=== PATIENT | female | born 1940 | race Caucasian/White ===

== ENCOUNTER 2017-04-29 11:29 | Emergency (ER) | payer MEDICARE, BC ==
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
[2017-04-29 11:56] VITALS: BP 115/68
[2017-04-29] MEDS ORDERED: Amoxicillin/Clavulanate K 875-125 MG Tab PO SCH (12:00)
[2017-04-29] MEDS ORDERED: Amoxicillin/Clavulanate K 875-125 MG Tab ONE (12:06)
[2017-04-29] MEDS ORDERED: Amoxicillin/Clavulanate K 875-125 MG Tab PO ONE (12:10)
== END 2017-04-29 12:15 | disposition home or self-care (01) ==
LOC: KA.ED 11:29
DX: J06.9 Acute upper respiratory infection, unspecified (principal); J01.00 Acute maxillary sinusitis, unspecified; Z88.6 Allergy status to analgesic agent; Z88.5 Allergy status to narcotic agent; Z88.1 Allergy status to other antibiotic agents; Z88.2 Allergy status to sulfonamides; Z79.899 Other long term (current) drug therapy
CPT/HCPCS: 99283; A9270

== ENCOUNTER 2017-07-09 21:21 | Observation (INO) | payer MEDICARE, BC ==
[~2017-07-09 21:21] MED LIST: Midazolam 1 MG/ML 2 ML SDV IV ONE; Propofol 200 MG/20 ML SDV IV ONE; fentaNYL 100 MCG/2 ML SDV IV ONE
[2017-07-09] MEDS ORDERED: Ondansetron 4 MG/2 ML SDV ONE (21:46)
[2017-07-09] MEDS ORDERED: Morphine 2 MG/ML Syringe ONE (21:46)
[2017-07-09] MEDS ORDERED: Morphine 2 MG/ML Syringe IVPUSH ONE (21:47)
[2017-07-09] MEDS ORDERED: Ondansetron 4 MG/2 ML SDV IVPUSH ONE (21:47)
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
[2017-07-09] MEDS ORDERED: Lactated Ringers 1,000 ML IV ONE (22:00)
[2017-07-09] MEDS ORDERED: Lactated Ringers 1,000 ML ONE (23:25)
[2017-07-10] MEDS: Baclofen 10 MG Tab PO SCH ×2 (02:14→23:26)
[2017-07-10] MEDS: Morphine 2 MG/ML Syringe IVPUSH PRN ×5 (02:15→11:16)
[2017-07-10] MEDS: Sodium Chloride 0.9% 5 ML Syringe FLUSH SCH ×5 (04:40→21:22)
[2017-07-10] MEDS ORDERED: Lidocaine 2% 100 MG/5 ML Syringe IVPUSH PRN (09:38)
[2017-07-10] MEDS ORDERED: Atropine 0.1 MG/ML 10 ML Syringe IVPUSH PRN (09:38)
[2017-07-10] MEDS ORDERED: EPINEPHrine 1:10,000 1 MG/10 ML Syringe IVPUSH PRN (09:38)
[2017-07-10] MEDS ORDERED: Nitroglycerin 0.4 MG Tab.SL SL PRN (09:38)
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
[2017-07-10] MEDS ORDERED: Albuterol/Ipratropium 3.0-0.5 MG/3 ML Neb Soln INH PRN ×2 (11:30→12:15)
[2017-07-10] MEDS ORDERED: Non-Formulary Medication 1 Each (Non-Formulary Medication [Nf Drug] 1 APPLIC) TP PRN (11:30)
[2017-07-10] MEDS: Ketorolac 30 MG/ML SDV IVPUSH SCH ×4 (11:55→22:44)
[2017-07-10] MEDS: Gabapentin 100 MG Cap PO SCH ×2 (11:59→20:33)
[2017-07-10] MEDS: Aspirin 81 MG Tab.EC PO SCH (11:59)
[2017-07-10] MEDS ORDERED: Acetaminophen 500 MG Tab PO PRN (12:00)
[2017-07-10] MEDS ORDERED: 20% Ketoprofen 12 GM, 3% Menthol 1.8 GM & 8% Trolamine Salicylate 46.2 GM TOP PRN ×3 (12:01)
[2017-07-10] MEDS: HYDROmorphone 2 MG Tab PO PRN ×2 (12:02→22:17)
[2017-07-10] MEDS: Losartan 50 MG Tab PO SCH (12:30)
[2017-07-10] MEDS: Propranolol 20 MG Tab PO SCH ×2 (12:30→20:32)
[2017-07-10] MEDS: Omeprazole 20 MG Cap.CR PO SCH ×2 (12:45→17:12)
[2017-07-10] MEDS: tiZANidine 4 MG Tab PO SCH ×3 (12:45→22:15)
[2017-07-10] MEDS ORDERED: rOPINIRole 1 MG Tab PO SCH ×2 (14:00→21:00)
[2017-07-10] MEDS: Escitalopram 10 MG Tab PO SCH (14:54)
[2017-07-10 16:53] LABS: CHLORIDE,CL 102 mmol/L (98-115); SODIUM,NA 137 mmol/L (136-145)
[2017-07-10] MEDS ORDERED: Fluticasone Propionate Nasal Spray 16 GM Bottle NASBOTH PRN (21:00)
[2017-07-11] MEDS: tiZANidine 4 MG Tab PO SCH ×2 (04:00→10:21)
[2017-07-11] MEDS: Ketorolac 30 MG/ML SDV IVPUSH SCH ×2 (04:02→05:14)
[2017-07-11] MEDS: Sodium Chloride 0.9% 5 ML Syringe FLUSH SCH ×2 (04:05→05:14)
[2017-07-11] MEDS: Omeprazole 20 MG Cap.CR PO SCH (07:26)
[2017-07-11] MEDS: Aspirin 81 MG Tab.EC PO SCH (07:26)
[2017-07-11] MEDS: Gabapentin 100 MG Cap PO SCH (08:03)
[2017-07-11] MEDS: Escitalopram 10 MG Tab PO SCH (08:03)
[2017-07-11] MEDS: Losartan 50 MG Tab PO SCH (09:46)
[2017-07-11 09:47] VITALS: BP 94/62
[2017-07-11] MEDS: Propranolol 20 MG Tab PO SCH (09:47)
--- NOTE | 2017-07-12 08:19 | DISCH ---
She was admitted into observation on 07/09/2017, discharged from observation on 07/11/2017. FINAL DIAGNOSIS: Primary status post anterior shoulder dislocation with closed reduction. HISTORY: This 76-year-old female she was admitted to the hospital due to increase in pain. Due to suffering anterior right shoulder dislocation, she arrived in the ED via ambulance with significant right shoulder pain after she tripped in her kitchen, hitting her right arm on the kitchen counter. She had actually been in physical therapy outpatient performing range of motion exercises for rehabilitation of her left shoulder. When she came in, she stated she did not hit her head, she did not have any other injuries. Her initial x- rays in the ED upon initial presentation demonstrated anterior dislocation of the right humerus with no acute fracture with post closed reduction films revealing normal anatomical alignment. However, according to the staff and the patient, she did require conscious sedation due to the difficulty of the reduction. She came to the floor after admission with significant increase in pain. She did require IV morphine throughout the first night here, slowly tapering down the next day. Due to increase in pain a subsequent x-ray was performed the night of admission several hours after she got to the floor, which did show a glenohumeral head riding high with decreasing acromiohumeral distance likely indicating a possible rotator cuff. The patient will go further testing with MRI within 24 hours. HOSPITAL COURSE: Hospital course went fairly well. She was in a lot significant amount of pain early on. She was scheduled Tylenol with breakthrough IV Dilaudid, also with baclofen I did change it to tizanidine. Her pain did improve significantly. Upon discharge she did have some mild edema around her AC joint. This decreased significantly with ice. She was complaining when I first saw her the morning on rounds with some intermittent transient tingling in her right arm extending into her fingers. However, there was no neurovascular compromise. She did have periods of low BP-adequate MAP. I was holding her blood pressure medicines. At one point, she did become flushed. I got a call from the nurses d/t flushed cheeks. Subsequent labs were drawn white count was normal 7.8, hemoglobin 12.9, hematocrit 39.1, neutrophils 74% with normal electrolytes, likely pain-related neurohumoral mediated. Continued with incentive spirometer. Her vital signs were monitored. Temperature maximum at that time was 100.8. They were normal on discharge. She was given senna-S to prevent constipation due to opioid use. Tylenol was scheduled. Tizanidine was given. PHYSICAL EXAM UPON DISCHARGE: GENERAL: The patient is full code. Pain level 2/10. No neurovascular compromise of her right arm and arm has been examined. Less edema in her AC joint, tenderness upon AC joint. Good distal pulses. Good capillary refill. LUNGS: Clear to auscultation. CV: Regular rate and rhythm. EXTREMITIES: No pitting edema. VITAL SIGNS: Temperature 99.6, blood pressure 130/70, O2 sats 94% on room air. NEUROLOGIC: The patient is alert and oriented. She desires to go home. Right arm continues to be in a sling and swathe. MEDICATION ADJUSTMENTS: Hold blood pressure medicines until evaluated at the Clinic. Senna-S one tablet p.o. daily x10 days as long as she is on narcotics; Tylenol scheduled 1 g q.6 hours; Dilaudid 2 mg p.o. q.6 hours p.r.n. for severe pain; she can continue taking her Aleve. The patient will receive an MRI tomorrow at the [facility]. She will follow up with her primary care provider, Alicia at the [facility] next week, sooner if any ongoing pain or any numbness returning back into her extremities. She was told to continue with sling and swathe. DISPOSITION: She will be discharged from the hospital today. Again she will get an MRI next week. The patient will need nursing with Home Health Aide along with physical therapy and occupational therapy. She will be homebound at this time due to inability to drive. She definitely has unsteady gait due to her arm in her sling. Physical therapy will help develop an in-home therapy program. Nursing will assist with pain assessment and medication management and help develop a home safety assessment with instruction. The patient does have decreased strength and endurance due to hospitalization. She will need help with ADLs and bathing due to limitations of use of her right arm. She will be homebound at this time. Discussion with the patient, she agrees with plan. Depending the results of her MRI, the patient may need Orthopedic consultation. Indications at follow-up with Alicia: Review MRI and make determination about possible orthopedic consultation as she still is quite independent prior to injury. MEDICAL DECISION MAKIN minutes spent on discharge planning, process, and care coordination. /[id number]/MODL MTDD
== END 2017-07-11 10:50 | disposition home health service (06) ==
LOC: KA.ED 21:21 → KA.MS 23:10
PROVIDERS: ADMIT Nurse Practitioner Family; ATTEND Nurse Practitioner Family
DX: S43.014A Anterior dislocation of right humerus, initial encounter (principal); W18.40XA Slipping, tripping and stumbling without falling, unspecified, initial encounter; Y92.89 Other specified places as the place of occurrence of the external cause; I10 Essential (primary) hypertension; E78.00 Pure hypercholesterolemia, unspecified; I27.20 Pulmonary hypertension, unspecified; J44.9 Chronic obstructive pulmonary disease, unspecified; K21.9 Gastro-esophageal reflux disease without esophagitis; F41.9 Anxiety disorder, unspecified; F32.9 Major depressive disorder, single episode, unspecified; Z88.1 Allergy status to other antibiotic agents; Z88.2 Allergy status to sulfonamides; Z88.8 Allergy status to other drugs, medicaments and biological substances; Z91.041 Radiographic dye allergy status; Z79.82 Long term (current) use of aspirin; Z79.899 Other long term (current) drug therapy
CPT/HCPCS: 01620; 23650; 36415; 73020; 73060; 80048; 85025; 96361; 96374; 96375; 99285; A9270; J1885; J2250; J2270; J2405; J2704; J3010; J7120; 96376; 99284; G0378

== ENCOUNTER 2021-02-27 08:03 | Emergency (ER) | payer MEDICARE, BC ==
[2021-02-27] MEDS ORDERED: Sodium Chloride 0.9% 1,000 ML IV ONE (08:38)
[2021-02-27] MEDS ORDERED: Sodium Chloride 0.9% 10 ML Syringe FLUSH PRN (08:38)
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
--- NOTE | 2021-02-27 09:04 | CR ---
[id number] RAD/RAD Chest PA or AP 1V EXAM: RAD Chest PA or AP 1V INDICATION: COUGH, FEVER, SHORT OF BREATH. COMPARISON: 2016. DISCUSSION/IMPRESSION: Bilateral symmetric interlobular septal thickening in the lung bases with streaky parenchymal opacities. Findings are nonspecific but can be seen with pneumonia including sequela of COVID 19. Differential diagnosis includes early changes of fluid retention in the chest. There is mild cardiomegaly and central vascular congestion. No pleural effusion. Molina MD 02/27/21 0904 Thank you for allowing us to participate in the care of your patient.
[2021-02-27 09:25] LABS: CHLORIDE,CL 99 mmol/L (98-107); SODIUM,NA 136 mmol/L (136-145)
[2021-02-27 09:43] VITALS: BP 102/51; PULSE 80
== END 2021-02-27 10:15 | disposition home or self-care (01) ==
LOC: KA.ED 08:03
DX: J15.9 Unspecified bacterial pneumonia (principal); I11.9 Hypertensive heart disease without heart failure; E78.00 Pure hypercholesterolemia, unspecified; J44.9 Chronic obstructive pulmonary disease, unspecified; K21.9 Gastro-esophageal reflux disease without esophagitis; Z20.822 Contact with and (suspected) exposure to COVID-19; Z88.5 Allergy status to narcotic agent; Z91.041 Radiographic dye allergy status; Z88.1 Allergy status to other antibiotic agents; Z88.8 Allergy status to other drugs, medicaments and biological substances; Z79.82 Long term (current) use of aspirin; Z79.899 Other long term (current) drug therapy
CPT/HCPCS: 36415; 71045; 80053; 81001; 83605; 85025; 87040; 93005; 99284; 99285-25; A9270-GY; J7030; U0002

== ENCOUNTER 2021-03-07 17:02 | Inpatient (IN) | payer MEDICARE, BC ==
[2021-03-07] MEDS ORDERED: Sodium Chloride 0.9% 1,000 ML IV SCH (17:15)
[2021-03-07 18:18] LABS: ANION GAP 14.2 mmol/L (5-15); CHLORIDE,CL 106 mmol/L (98-107); SODIUM,NA 143 mmol/L (136-145)
[2021-03-07] MEDS ORDERED: Sodium Chloride 0.9% 500 ML IV ONE (18:58)
[2021-03-07] MEDS ORDERED: Albuterol 8 GM Inhaler INH PRN (18:59)
[2021-03-07] MEDS ORDERED: Albuterol/Ipratropium 3.0-0.5 MG/3 ML Neb Soln INH PRN (18:59)
[2021-03-07] MEDS ORDERED: Acetaminophen 650 MG Tab.ER PO PRN (18:59)
--- NOTE | 2021-03-07 19:25 | CT ---
[id number] CT/CT Chest WO IV Exam: CT Chest WO IV Clinical Data: PNEUMONIA COMPARISON: CORRELATION IS MADE WITH AUGUST 20, 2015 FINDINGS: Right basilar parenchymal changes are overall stable. This involves the right middle lobe There is a large intrathoracic stomach. 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
[2021-03-07] MEDS: Albuterol 0.083% 2.5 MG/3 ML Neb Soln INH SCH ×2 (19:47→23:44)
[2021-03-07] MEDS ORDERED: DOXEPIN 10 MG PO SCH (21:00)
[2021-03-07] MEDS: Montelukast 10 MG Tab PO SCH (21:14)
[2021-03-07] MEDS: sulfaSALAzine 500 MG Tab PO SCH (21:14)
[2021-03-07] MEDS: Pramipexole 0.5 MG Tab PO SCH (21:15)
[2021-03-07] MEDS: Gabapentin 100 MG Cap PO SCH (21:15)
[2021-03-07] MEDS: Cefepime 2 GM in Sodium Chloride 0.9% 50 ML IV SCH (22:05)
[2021-03-07] MEDS: Doxepin 25 MG Cap PO SCH (22:05)
[2021-03-08] MEDS: Albuterol 0.083% 2.5 MG/3 ML Neb Soln INH SCH ×6 (03:20→23:35)
[2021-03-08] MEDS: Cefepime 2 GM in Sodium Chloride 0.9% 50 ML IV SCH (06:11)
[2021-03-08] MEDS: Omeprazole 20 MG Cap.CR PO SCH ×2 (07:55→17:28)
[2021-03-08 08:14] LABS: ANION GAP 11.3 mmol/L (5-15); CHLORIDE,CL 108 mmol/L (98-107); SODIUM,NA 145 mmol/L (136-145)
[2021-03-08] MEDS: Lutein/Minerals/Vitamins A, C & E Tab PO SCH (08:14)
[2021-03-08] MEDS: Escitalopram 10 MG Tab PO SCH (08:15)
[2021-03-08] MEDS: sulfaSALAzine 500 MG Tab PO SCH ×2 (08:17→20:59)
[2021-03-08] MEDS: Hydroxychloroquine 200 MG Tab PO SCH (08:18)
[2021-03-08] MEDS: Gabapentin 100 MG Cap PO SCH ×3 (08:18→21:00)
[2021-03-08] MEDS ORDERED: predniSONE 20 MG Tab PO SCH (09:00)
--- NOTE | 2021-03-08 09:21 | PCM.PN ---
- General Info Date of Service: 03/08/21 Functional Status: Reports: Pain Controlled, Tolerating Diet, Urinating. Denies: Ambulating, New Symptoms - Review of Systems General: Denies: Fever, Weakness, Fatigue, Malaise, Chills HEENT: Reports: Sinus Congestion, Other (maxillary sinus pain). Denies: Sore Throat Pulmonary: Reports: Cough. Denies: Shortness of Breath, Pleuritic Chest Pain, Wheezing Cardiovascular: Denies: Chest Pain, Palpitations, Orthopnea, PND, Edema Gastrointestinal: Denies: Decreased Appetite, Diarrhea, Nausea, Vomiting Musculoskeletal: Reports: Back Pain (chronic) Skin: Reports: No Symptoms Neurological: Reports: Difficulty Walking (uses walker). Denies: Confusion - Patient Data Vitals - Most Recent: Last Vital Signs Temp 97.1 F 03/08/21 06:25 Pulse 71 03/08/21 06:25 Resp 28 H 03/08/21 06:25 BP 95/60 03/08/21 06:25 Pulse Ox 96 03/08/21 06:25 Weight - Most Recent: 128 lb 12.8 oz I&O - Last 24 Hours: Intake & Output 03/07/21 03/08/21 03/08/21 22:59 06:59 14:59 Intake Total 768 875 Balance 768 875 Lab Results Last 24 Hours: Laboratory Results - last 24 hr 03/07/21 03/07/21 03/07/21 Range/Units 17:40 17:50 17:50 WBC 7.82 (5.00-10.00) 10^3/uL RBC 3.77 L (3.80-5.50) 10^6/uL Hgb 12.1 (12.0-16.0) g/dL Hct 37.5 (37.0-47.0) % MCV 99.5 H (82.0-92.0) fL MCH 32.1 H (27.0-31.0) pg MCHC 32.3 (32.0-36.0) g/dL RDW 13.5 (11.5-14.5) % Plt Count 258 D (150-400) 10^3/uL MPV 9.8 (7.4-10.4) fL Immature Gran % (Auto) 0.9 (0.0-5.0) % Neut % (Auto) 84.9 H (50.0-70.0) % Lymph % (Auto) 8.6 L (20.0-40.0) % [place] % (Auto) 5.2 (2.0-8.0) % Eos % (Auto) 0.0 L (1.0-3.0) % Baso % (Auto) 0.4 (0.0-1.0) % Neut # (Auto) 6.64 (2.50-7.00) 10^3/uL Lymph # (Auto) 0.67 L (1.00-4.00) 10^3/uL [place] # (Auto) 0.41 (0.10-0.80) 10^3/uL Eos # (Auto) 0.00 L (0.10-0.30) 10^3/uL Baso # (Auto) 0.03 (0.00-0.10) 10^3/uL Immature Gran # (Auto) 0.07 (0.00-0.50) 10^3/uL Sodium 143 (136-145) mmol/L Potassium 4.3 (3.5-5.1) mmol/L Chloride 106 (98-107) mmol/L Carbon Dioxide 27.1 (21.0-32.0) mmol/L Anion Gap 14.2 (5-15) mmol/L BUN 10 (7-18) mg/dL Creatinine 0.53 (0.51-1.17) mg/dL Est Cr Clr Drug Dosing TNP Estimated GFR (MDRD) > 60 mL/min Glucose 125 (70-140) mg/dL Lactic Acid (0.4-2.0) mmol/L Calcium 8.8 (8.7-10.3) mg/dL Total Bilirubin 0.5 (0.2-1.0) mg/dL AST 19 (15-37) U/L ALT 25 (14-63) U/L Alkaline Phosphatase 80 (46-116) U/L C-Reactive Protein < 0.4 (0.0-0.9) mg/dL B-Natriuretic Peptide 269 H (0-100) pg/mL Total Protein 6.6 (6.4-8.2) g/dL Albumin 3.63 (3.40-5.00) g/dL SARS CoV-2 RNA Rapid MIKE Negative (NEGATIVE) 08/30/21 08/31/21 08/31/21 Range/Units 17:50 07:30 07:30 WBC 5.10 (5.00-10.00) 10^3/uL RBC 3.45 L (3.80-5.50) 10^6/uL Hgb 11.2 L (12.0-16.0) g/dL Hct 35.3 L (37.0-47.0) % MCV 102.3 H (82.0-92.0) fL MCH 32.5 H (27.0-31.0) pg MCHC 31.7 L (32.0-36.0) g/dL RDW 13.5 (11.5-14.5) % Plt Count 196 (150-400) 10^3/uL MPV 9.5 (7.4-10.4) fL Immature Gran % (Auto) 0.8 (0.0-5.0) % Neut % (Auto) 61.9 (50.0-70.0) % Lymph % (Auto) 25.9 (20.0-40.0) % [place] % (Auto) 10.0 H (2.0-8.0) % Eos % (Auto) 0.8 L (1.0-3.0) % Baso % (Auto) 0.6 (0.0-1.0) % Neut # (Auto) 3.16 (2.50-7.00) 10^3/uL Lymph # (Auto) 1.32 (1.00-4.00) 10^3/uL [place] # (Auto) 0.51 (0.10-0.80) 10^3/uL Eos # (Auto) 0.04 L (0.10-0.30) 10^3/uL Baso # (Auto) 0.03 (0.00-0.10) 10^3/uL Immature Gran # (Auto) 0.04 (0.00-0.50) 10^3/uL Sodium 145 (136-145) mmol/L Potassium 3.6 (3.5-5.1) mmol/L Chloride 108 H (98-107) mmol/L Carbon Dioxide 29.3 (21.0-32.0) mmol/L Anion Gap 11.3 (5-15) mmol/L BUN 10 (7-18) mg/dL Creatinine 0.57 (0.51-1.17) mg/dL Est Cr Clr Drug Dosing 65.12 Estimated GFR (MDRD) > 60 mL/min Glucose 90 (70-140) mg/dL Lactic Acid 1.7 (0.4-2.0) mmol/L Calcium 8.2 L (8.7-10.3) mg/dL Total Bilirubin (0.2-1.0) mg/dL AST (15-37) U/L ALT (14-63) U/L Alkaline Phosphatase (46-116) U/L C-Reactive Protein (0.0-0.9) mg/dL B-Natriuretic Peptide (0-100) pg/mL Total Protein (6.4-8.2) g/dL Albumin (3.40-5.00) g/dL SARS CoV-2 RNA Rapid MIKE (NEGATIVE) Med Orders - Current: Current Medications Acetaminophen (Acetaminophen 650 Mg Tab.Er) 1,300 mg PO BID PRN PRN Reason: Pain Albuterol (Albuterol 0.083% 2.5 Mg/3 Ml Neb Soln) 2.5 mg INH Q4HR [facility] Last Admin: 03/08/21 06:13 Dose: 2.5 mg Documented by: Albuterol (Albuterol 8 Gm Inhaler) 2 gm INH Q4H PRN PRN Reason: Shortness of Breath Albuterol/Ipratropium (Albuterol/Ipratropium 3.0-0.5 Mg/3 Ml Neb Soln) 3 ml INH QID PRN PRN Reason: Shortness of Breath Doxepin HCl (Doxepin 25 Mg Cap) 25 mg PO BEDTIME [facility] Last Admin: 03/07/21 22:05 Dose: 25 mg Documented by: Escitalopram Oxalate (Escitalopram 10 Mg Tab) 20 mg PO DAILY [facility] Last Admin: 03/08/21 08:15 Dose: 20 mg Documented by: Gabapentin (Gabapentin 100 Mg Cap) 400 mg PO TID [facility] Last Admin: 03/08/21 08:18 Dose: 400 mg Documented by: Hydroxychloroquine Sulfate (Hydroxychloroquine 200 Mg Tab) 200 mg PO DAILY [facility] Last Admin: 03/08/21 08:18 Dose: 200 mg Documented by: Hydroxychloroquine Sulfate (Hydroxychloroquine 200 Mg Tab) 200 mg PO TuThSa@2100 [facility] Sodium Chloride (Normal Saline) 1,000 mls @ 75 mls/hr IV ASDIRECTED [facility] Last Admin: 03/07/21 18:59 Dose: 75 mls/hr Documented by: Cefepime HCl 2 gm/ Sodium (Chloride) 50 mls @ 100 mls/hr IV Q8HR [facility] Last Admin: 03/08/21 06:11 Dose: 100 mls/hr Documented by: Montelukast Sodium (Montelukast 10 Mg Tab) 10 mg PO BEDTIME [facility] Last Admin: 03/07/21 21:14 Dose: 10 mg Documented by: Multivitamins/Minerals (Lutein/Minerals/Vitamins A, C & E Tab) 1 each PO DAILY [facility] Last Admin: 03/08/21 08:14 Dose: 1 each Documented by: Fluticasone/Umeclidin/Vilanter 28 Puff/Inhaler Inhaler 1 puff INH DAILY [facility] Omeprazole (Omeprazole 20 Mg Cap.Cr) 20 mg PO BIDMEALS [facility] Last Admin: 03/08/21 07:55 Dose: 20 mg Documented by: Pramipexole Dihydrochloride (Pramipexole 0.5 Mg Tab) 1 mg PO BEDTIME [facility] Last Admin: 03/07/21 21:15 Dose: 1 mg Documented by: Pramipexole Dihydrochloride (Pramipexole 0.5 Mg Tab) 0.5 mg PO BID@1200,1500 S Prednisone (Prednisone 20 Mg Tab) 40 mg PO DAILY [facility] Stop: 03/13/21 07:00 Last Admin: 03/08/21 08:16 Dose: 40 mg Documented by: Rosuvastatin Calcium (Rosuvastatin 10 Mg Tab) 10 mg PO 1800 PARDEEP Sulfasalazine (Sulfasalazine 500 Mg Tab) 1,500 mg PO BID [facility] Last Admin: 03/08/21 08:17 Dose: 1,500 mg Documented by: Discontinued Medications Sodium Chloride (Normal Saline) 500 mls @ 999 mls/hr IV .BOLUS ONE Stop: 03/07/21 19:28 Last Admin: 03/07/21 19:43 Dose: 999 mls/hr Documented by: Non-Formulary Medication (Doxepin [Sinequan]) 30 mg PO BEDTIME [facility] Last Admin: 03/08/21 07:02 Dose: Not Given Documented by: - Exam Quality Assessment: No: Supplemental Oxygen General: Alert, Oriented, Cooperative, No Acute Distress HEENT: Other (tender maxillary sinuses--bilateral ) Lungs: Decreased Breath Sounds Cardiovascular: Regular Rate, Regular Rhythm (Female) Exam: Deferred Extremities: No Pedal Edema Psy/Mental Status: Alert, Normal Affect, Normal Mood - Patient Data Lab Results Last 24 hrs: Laboratory Results - last 24 hr 03/07/21 03/07/21 03/07/21 Range/Units 17:40 17:50 17:50 WBC 7.82 (5.00-10.00) 10^3/uL RBC 3.77 L (3.80-5.50) 10^6/uL Hgb 12.1 (12.0-16.0) g/dL Hct 37.5 (37.0-47.0) % MCV 99.5 H (82.0-92.0) fL MCH 32.1 H (27.0-31.0) pg MCHC 32.3 (32.0-36.0) g/dL RDW 13.5 (11.5-14.5) % Plt Count 258 D (150-400) 10^3/uL MPV 9.8 (7.4-10.4) fL Immature Gran % (Auto) 0.9 (0.0-5.0) % Neut % (Auto) 84.9 H (50.0-70.0) % Lymph % (Auto) 8.6 L (20.0-40.0) % [place] % (Auto) 5.2 (2.0-8.0) % Eos % (Auto) 0.0 L (1.0-3.0) % Baso % (Auto) 0.4 (0.0-1.0) % Neut # (Auto) 6.64 (2.50-7.00) 10^3/uL Lymph # (Auto) 0.67 L (1.00-4.00) 10^3/uL [place] # (Auto) 0.41 (0.10-0.80) 10^3/uL Eos # (Auto) 0.00 L (0.10-0.30) 10^3/uL Baso # (Auto) 0.03 (0.00-0.10) 10^3/uL Immature Gran # (Auto) 0.07 (0.00-0.50) 10^3/uL Sodium 143 (136-145) mmol/L Potassium 4.3 (3.5-5.1) mmol/L Chloride 106 (98-107) mmol/L Carbon Dioxide 27.1 (21.0-32.0) mmol/L Anion Gap 14.2 (5-15) mmol/L BUN 10 (7-18) mg/dL Creatinine 0.53 (0.51-1.17) mg/dL Est Cr Clr Drug Dosing TNP Estimated GFR (MDRD) > 60 mL/min Glucose 125 (70-140) mg/dL Lactic Acid (0.4-2.0) mmol/L Calcium 8.8 (8.7-10.3) mg/dL Total Bilirubin 0.5 (0.2-1.0) mg/dL AST 19 (15-37) U/L ALT 25 (14-63) U/L Alkaline Phosphatase 80 (46-116) U/L C-Reactive Protein < 0.4 (0.0-0.9) mg/dL B-Natriuretic Peptide 269 H (0-100) pg/mL Total Protein 6.6 (6.4-8.2) g/dL Albumin 3.63 (3.40-5.00) g/dL SARS CoV-2 RNA Rapid MIKE Negative (NEGATIVE) 03/07/21 03/08/21 03/08/21 Range/Units 17:50 07:30 07:30 WBC 5.10 (5.00-10.00) 10^3/uL RBC 3.45 L (3.80-5.50) 10^6/uL Hgb 11.2 L (12.0-16.0) g/dL Hct 35.3 L (37.0-47.0) % MCV 102.3 H (82.0-92.0) fL MCH 32.5 H (27.0-31.0) pg MCHC 31.7 L (32.0-36.0) g/dL RDW 13.5 (11.5-14.5) % Plt Count 196 (150-400) 10^3/uL MPV 9.5 (7.4-10.4) fL Immature Gran % (Auto) 0.8 (0.0-5.0) % Neut % (Auto) 61.9 (50.0-70.0) % Lymph % (Auto) 25.9 (20.0-40.0) % [place] % (Auto) 10.0 H (2.0-8.0) % Eos % (Auto) 0.8 L (1.0-3.0) % Baso % (Auto) 0.6 (0.0-1.0) % Neut # (Auto) 3.16 (2.50-7.00) 10^3/uL Lymph # (Auto) 1.32 (1.00-4.00) 10^3/uL [place] # (Auto) 0.51 (0.10-0.80) 10^3/uL Eos # (Auto) 0.04 L (0.10-0.30) 10^3/uL Baso # (Auto) 0.03 (0.00-0.10) 10^3/uL Immature Gran # (Auto) 0.04 (0.00-0.50) 10^3/uL Sodium 145 (136-145) mmol/L Potassium 3.6 (3.5-5.1) mmol/L Chloride 108 H (98-107) mmol/L Carbon Dioxide 29.3 (21.0-32.0) mmol/L Anion Gap 11.3 (5-15) mmol/L BUN 10 (7-18) mg/dL Creatinine 0.57 (0.51-1.17) mg/dL Est Cr Clr Drug Dosing 65.12 Estimated GFR (MDRD) > 60 mL/min Glucose 90 (70-140) mg/dL Lactic Acid 1.7 (0.4-2.0) mmol/L Calcium 8.2 L (8.7-10.3) mg/dL Total Bilirubin (0.2-1.0) mg/dL AST (15-37) U/L ALT (14-63) U/L Alkaline Phosphatase (46-116) U/L C-Reactive Protein (0.0-0.9) mg/dL B-Natriuretic Peptide (0-100) pg/mL Total Protein (6.4-8.2) g/dL Albumin (3.40-5.00) g/dL SARS CoV-2 RNA Rapid MIKE (NEGATIVE) Result Diagrams: 03/08/21 07:30 03/08/21 07:30 Sepsis Event Note - Evaluation Sepsis Screening Result: No Definite Risk - Focused Exam Vital Signs: Vital Signs Temp Pulse Resp BP Pulse Ox 03/08/21 06:25 97.1 F 71 28 H 95/60 96 03/08/21 03:00 97.2 F 75 24 H 99/62 94 L 03/07/21 22:10 97.2 F 88 32 H 91/62 92 L - Problem List Review Problem List Initiated/Reviewed/Updated: Yes - Plan Plan:: History summary Mx Diane an 80-year-old patient that was admitted into INPT status by Ally Rouse NP from [facility] working/clinical diagnosis of weakness, dehydration and coughing and pneumonia--she has been sick for ~2 weeks with recent ED visit along with clinic follow-ups and had been on antibiotics however failing outpatient treatment. Patient clinical course/history --Initially seen on 02/24/2021 and clinically dx with exacerbation of COPD he did have purulent sputum--treated with macrolide/prednisone burst. --02/26/2021 [facility] ED, nonspecific findings however parents of post COVID sequela although Neg COVID test, Sent home with Doxycycline --02/28/2021 follow-up from the ER. Ongoing cough but feeling somewhat better --03/02/2021 o/p clinic for worsening sx with reports of coughing up mucous chunks. CXR Hazy bibasilar interstitial opacities appear slightly more prominent when compared to 12/15/2019 and may represent multifocal pneumonia-- IV fluids CBC neg for leukocytosis/neutrophilia, CMP was negative, CRP was 18.5, procalcitonin was 0.05. --03/03/2021 f/u and was noted to have hypotension--IVF bolus repeated steroid burst, albuterol nebulizers, IV rocephin, mucinex --03/04/2021 f/u reported that she was feeling much better and felt she was on the path to recovery. --03/07/2021 outpatient, hypotension, weak, cough, admitted for IV fluids and further work-up Hospital course 03/08/2021; patient feeling better today, more energy however ongoing cough with mucus production, suspect concomitant sinus etiology, CT bronchiectasis, no fever, ongoing IV fluids, tolerating p.o. 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, possible viral etiology --Rhinosinusitis with concomitant Allergic Rhinitis--add flonase, nasal irrigation, sinus xray --Dehydration/hypotension, improving Chronic conditions: #COPD: Continue Trelegy and albuterol inhaler #Dyspnea on exertion: #Seasonal allergic rhinitis: Continue montelukast, added Flonase #Pulmonary hypertension: #Heart failure with preserved ejection fraction: #Hyperlipidemia: Continue rosuvastatin #Hypertension: Hold losartan #Seronegative rheumatoid arthritis: Continue sulfasalazine and hydroxychloroquine #Peptic ulcer: #GERD: Continue pantoprazole #Duodenal mass: #Migraine: Hold sumatriptan #Vitamin D deficiency: #Hypercalcemia: #Osteoporosis: Hold Forteo; may continue Tylenol arthritis #Peripheral polyneuropathy: Continue gabapentin #Facet joint sclerosis: #Lumbar radiculitis: #Midline low back pain with left-sided sciatica: #Bilateral low back pain with bilateral sciatica: #Spondylolisthesis of lumbar sacral region: #Foraminal stenosis of lumbar region: #Scoliosis of the thoracicolumbar spine: #Restless leg syndrome: Continue pramipexole #Anxiety/depression: Continue doxepin and Escitalopram #Supplement: May continue multivitamin Disposition/overall plan --IV saline lock after current fluids--encourage PO --Add Flonase --DC prednisone (received fifth dose this a.m.) --Add flutter valve Acapella device for mucuous clearance --Attempt sputum culture, induce if able --sinus X-ray --Codeine cough syrup bedtime use only, add Robitussin-DM during day --Change to ceftriaxone --Cont Trelogy --Nsg to consult with pharmacy regarding [place] pot or saline irrigation techniques choice --PT referral with plans to DC to LTC
--- NOTE | 2021-03-08 11:00 | CR ---
[id number] RAD/RAD Sinuses Exam: RAD Sinuses Indication:SINUS PAIN. Comparison: CT from 2016. Discussion/Impression: Paranasal sinuses are well aerated and clear. Facial bones are unremarkable. Dental implant in place. Isaías Molina MD 03/08/21 [phone] Thank you for allowing us to participate in the care of your patient.
[2021-03-08] MEDS: cefTRIAXone 2 GM Vial IVPUSH SCH (11:20)
[2021-03-08] MEDS: Fluticasone Propionate Nasal Spray 16 GM Bottle NASBOTH SCH (11:20)
[2021-03-08] MEDS: Pramipexole 0.5 MG Tab PO SCH ×3 (11:21→21:00)
[2021-03-08] MEDS: guaiFENesin/Dextromethorphan 100-10 MG/5 ML Soln 5 ML Cup PO PRN (12:23)
[2021-03-08] MEDS: Rosuvastatin 10 MG Tab PO SCH (17:28)
[2021-03-08] MEDS: Codeine/guaiFENesin 10-100 MG/5 ML Syrup 5 ML Cup PO SCH (20:58)
[2021-03-08] MEDS: Doxepin 25 MG Cap PO SCH (20:59)
[2021-03-08] MEDS: Montelukast 10 MG Tab PO SCH (20:59)
[2021-03-08] MEDS ORDERED: Hydroxychloroquine 200 MG Tab PO SCH (21:00)
[2021-03-09] MEDS: Albuterol 0.083% 2.5 MG/3 ML Neb Soln INH SCH ×6 (03:14→22:12)
[2021-03-09] MEDS: Omeprazole 20 MG Cap.CR PO SCH ×2 (07:30→17:13)
[2021-03-09] MEDS: sulfaSALAzine 500 MG Tab PO SCH ×2 (08:20→20:46)
[2021-03-09] MEDS: Fluticasone Propionate Nasal Spray 16 GM Bottle NASBOTH SCH (08:20)
[2021-03-09] MEDS: Gabapentin 100 MG Cap PO SCH ×3 (08:20→20:46)
[2021-03-09] MEDS: Hydroxychloroquine 200 MG Tab PO SCH (08:20)
[2021-03-09] MEDS: Lutein/Minerals/Vitamins A, C & E Tab PO SCH (08:21)
[2021-03-09] MEDS: Escitalopram 10 MG Tab PO SCH (08:21)
[2021-03-09] MEDS: guaiFENesin/Dextromethorphan 100-10 MG/5 ML Soln 5 ML Cup PO PRN ×2 (09:20→17:13)
[2021-03-09] MEDS: cefTRIAXone 2 GM Vial IVPUSH SCH (09:21)
--- NOTE | 2021-03-09 09:52 | PCM.PN ---
- General Info Date of Service: 03/09/21 Functional Status: Reports: Pain Controlled, Tolerating Diet, Ambulating, Urinating. Denies: New Symptoms - Review of Systems General: Denies: Fever, Weakness, Fatigue, Malaise HEENT: Reports: No Symptoms Pulmonary: Reports: Cough (dry) Cardiovascular: Reports: No Symptoms Gastrointestinal: Reports: No Symptoms Genitourinary: Reports: No Symptoms Musculoskeletal: Reports: Back Pain (chronic) Skin: Reports: No Symptoms Neurological: Reports: Pre-Existing Deficit, Difficulty Walking - Patient Data Vitals - Most Recent: Last Vital Signs Temp 97.0 F 03/09/21 07:00 Pulse 70 03/09/21 07:00 Resp 20 03/09/21 07:00 BP 114/43 L 03/09/21 07:00 Pulse Ox 98 03/09/21 07:00 Weight - Most Recent: 128 lb 12.8 oz I&O - Last 24 Hours: Intake & Output 03/08/21 03/09/21 03/09/21 22:59 06:59 14:59 Intake Total 600 150 Balance 600 150 Lab Results Last 24 Hours: Laboratory Results - last 24 hr 03/07/21 Range/Units 17:50 Procalcitonin 0.07 ng/mL Edson Results Last 24 Hours: Microbiology 03/07/21 22:10 Gram Stain - Final Sputum - Expectorated 03/07/21 18:00 Aerobic Blood Culture - Preliminary Blood - Venous NO GROWTH AFTER 1 DAY Anaerobic Blood Culture - Preliminary NO GROWTH AFTER 1 DAY 03/07/21 17:50 Aerobic Blood Culture - Preliminary Blood - Venous - Lab Draw NO GROWTH AFTER 1 DAY Anaerobic Blood Culture - Preliminary NO GROWTH AFTER 1 DAY Med Orders - Current: Current Medications Acetaminophen (Acetaminophen 650 Mg Tab.Er) 1,300 mg PO BID PRN PRN Reason: Pain Last Admin: 03/08/21 21:01 Dose: 1,300 mg Documented by: Albuterol (Albuterol 0.083% 2.5 Mg/3 Ml Neb Soln) 2.5 mg INH Q4HR [facility] Last Admin: 03/09/21 06:25 Dose: 2.5 mg Documented by: Albuterol (Albuterol 8 Gm Inhaler) 0 gm INH Q4H PRN PRN Reason: Shortness of Breath Albuterol/Ipratropium (Albuterol/Ipratropium 3.0-0.5 Mg/3 Ml Neb Soln) 3 ml INH QID PRN PRN Reason: Shortness of Breath Ceftriaxone Sodium (Ceftriaxone 2 Gm Vial) 2 gm IVPUSH Q24H ON LICENSE OF [facility] Last Admin: 03/09/21 09:21 Dose: 2 gm Documented by: Doxepin HCl (Doxepin 25 Mg Cap) 25 mg PO BEDTIME ON LICENSE OF [facility] Last Admin: 03/08/21 20:59 Dose: 25 mg Documented by: Escitalopram Oxalate (Escitalopram 10 Mg Tab) 20 mg PO DAILY ON LICENSE OF [facility] Last Admin: 03/09/21 08:21 Dose: 20 mg Documented by: Fluticasone Propionate (Fluticasone Propionate Nasal [place] 16 Gm Bottle) 100 gm NASBOTH DAILY ON LICENSE OF [facility] Last Admin: 03/09/21 08:20 Dose: 2 spray Documented by: Gabapentin (Gabapentin 100 Mg Cap) 400 mg PO TID ON LICENSE OF [facility] Last Admin: 03/09/21 08:20 Dose: 400 mg Documented by: Guaifenesin/Codeine Phosphate (Codeine/Guaifenesin 10-100 Mg/5 Ml Syrup 5 Ml Cup) 10 ml PO BEDTIME ON LICENSE OF [facility] Last Admin: 03/08/21 20:58 Dose: 10 ml Documented by: Guaifenesin/Phenylephrine HCl (Guaifenesin/Dextromethorphan 100-10 Mg/5 Ml Soln 5 Ml Cup) 10 ml PO Q4H PRN PRN Reason: Cough Last Admin: 03/09/21 09:20 Dose: 10 ml Documented by: Hydroxychloroquine Sulfate (Hydroxychloroquine 200 Mg Tab) 200 mg PO DAILY ON [facility] OF [facility] Last Admin: 03/09/21 08:20 Dose: 200 mg Documented by: Hydroxychloroquine Sulfate (Hydroxychloroquine 200 Mg Tab) 200 mg PO TuThSa@2100 ON [facility] OF [facility] Last Admin: 03/08/21 21:00 Dose: 200 mg Documented by: Montelukast Sodium (Montelukast 10 Mg Tab) 10 mg PO BEDTIME ON [facility] OF [facility] Last Admin: 03/08/21 20:59 Dose: 10 mg Documented by: Multivitamins/Minerals (Lutein/Minerals/Vitamins A, C & E Tab) 1 each PO DAILY ON LICENSE OF [facility] Last Admin: 03/09/21 08:21 Dose: 1 each Documented by: Fluticasone/Umeclidin/Vilanter 28 Puff/Inhaler Inhaler 1 puff INH DAILY ON LICENSE OF [facility] Omeprazole (Omeprazole 20 Mg Cap.Cr) 20 mg PO BIDMEALS ON LICENSE OF [facility] Last Admin: 03/09/21 07:30 Dose: 20 mg Documented by: Pramipexole Dihydrochloride (Pramipexole 0.5 Mg Tab) 1 mg PO BEDTIME ON LICENSE OF [facility] Last Admin: 03/08/21 21:00 Dose: 1 mg Documented by: Pramipexole Dihydrochloride (Pramipexole 0.5 Mg Tab) 0.5 mg PO BID@1200,1500 ON [facility] OF [facility] Last Admin: 03/08/21 14:41 Dose: 0.5 mg Documented by: Rosuvastatin Calcium (Rosuvastatin 10 Mg Tab) 10 mg PO 1800 ON [facility] OF [facility] Last Admin: 03/08/21 17:28 Dose: 10 mg Documented by: Sulfasalazine (Sulfasalazine 500 Mg Tab) 1,500 mg PO BID ON LICENSE OF [facility] Last Admin: 03/09/21 08:20 Dose: 1,500 mg Documented by: Discontinued Medications Sodium Chloride (Normal Saline) 1,000 mls @ 75 mls/hr IV ASDIRECTED ON LICENSE OF [facility] Last Admin: 03/07/21 18:59 Dose: 75 mls/hr Documented by: Sodium Chloride (Normal Saline) 500 mls @ 999 mls/hr IV .BOLUS ONE Stop: 03/07/21 19:28 Last Admin: 03/07/21 19:43 Dose: 999 mls/hr Documented by: Cefepime HCl 2 gm/ Sodium (Chloride) 50 mls @ 100 mls/hr IV Q8HR ON LICENSE OF [facility] Last Admin: 03/08/21 06:11 Dose: 100 mls/hr Documented by: Non-Formulary Medication (Doxepin [Sinequan]) 30 mg PO BEDTIME ON LICENSE OF [facility] Last Admin: 03/08/21 07:02 Dose: Not Given Documented by: Prednisone (Prednisone 20 Mg Tab) 40 mg PO DAILY ON [facility] OF [facility] Stop: 03/13/21 07:00 Last Admin: 03/08/21 08:16 Dose: 40 mg Documented by: - Exam Quality Assessment: No: Supplemental Oxygen General: Alert, Oriented, Cooperative, No Acute Distress Lungs: Clear to Auscultation, Normal Respiratory Effort. No: Crackles, Rales Cardiovascular: Regular Rate, Regular Rhythm (Female) Exam: Deferred Extremities: No Pedal Edema Peripheral Pulses: 2+: Radial (L), Radial (R) Skin: Warm, Dry, Intact Neurological: No New Focal Deficit Psy/Mental Status: Alert, Normal Affect, Normal Mood - Patient Data Lab Results Last 24 hrs: Laboratory Results - last 24 hr 03/07/21 Range/Units 17:50 Procalcitonin 0.07 ng/mL Result Diagrams: 03/08/21 07:30 03/08/21 07:30 Edson Results Last 24 hrs: Microbiology 03/07/21 22:10 Gram Stain - Final Sputum - Expectorated 03/07/21 18:00 Aerobic Blood Culture - Preliminary Blood - Venous NO GROWTH AFTER 1 DAY Anaerobic Blood Culture - Preliminary NO GROWTH AFTER 1 DAY 03/07/21 17:50 Aerobic Blood Culture - Preliminary Blood - Venous - Lab Draw NO GROWTH AFTER 1 DAY Anaerobic Blood Culture - Preliminary NO GROWTH AFTER 1 DAY Sepsis Event Note - Evaluation Sepsis Screening Result: No Definite Risk - Focused Exam Vital Signs: Vital Signs Temp Pulse Resp BP Pulse Ox 03/09/21 07:00 97.0 F 70 20 114/43 L 98 03/09/21 06:26 68 03/09/21 02:59 97.0 F 68 18 106/61 94 L 03/08/21 22:50 97.7 F 85 20 102/59 L 93 L - Problem List Review Problem List Initiated/Reviewed/Updated: Yes - My Orders Last 24 Hours: My Active Orders 03/08/21 09:30 Fluticasone Propionate [Flonase] 100 gm NASBOTH DAILY 03/08/21 09:34 Consult to Physical Therapy [PT Evaluation and Treatment] [CONS] Routine 03/08/21 10:00 cefTRIAXone [Rocephin] 2 gm IVPUSH Q24H 03/08/21 10:25 Dextromethorphan/guaiFENesin [Robitussin DM] 10 ml PO Q4H PRN 03/08/21 13:37 OT Evaluation and Treatment [CONS] Routine 03/08/21 21:00 Codeine/guaiFENesin [Robitussin AC] 10 ml PO BEDTIME 03/09/21 09:12 CULTURE SPUTUM + SMEAR [RM] Routine 03/09/21 09:45 Teriparatide [Teriparatide] 20 mcg SUBCUT DAILY - Plan Plan:: History summary Mx [place] an 80-year-old patient that was admitted into INPT status by Ally Rouse NP from [facility] working/clinical diagnosis of weakness, dehydra tion and coughing and pneumonia--she has been sick for ~2 weeks with recent ED visit along with clinic follow-ups and had been on antibiotics however failing outpatient treatment. Patient clinical course/history --Initially seen on 02/24/2021 and clinically dx with exacerbation of COPD he did have purulent sputum--treated with macrolide/prednisone burst. --02/26/2021 [place] ED, nonspecific findings however parents of post COVID sequela although Neg COVID test, Sent home with Doxycycline --02/28/2021 follow-up from the ER. Ongoing cough but feeling somewhat better --03/02/2021 o/p clinic for worsening sx with reports of coughing up mucous chunks. CXR Hazy bibasilar interstitial opacities appear slightly more prominent when compared to 12/15/2019 and may represent multifocal pneumonia--IV fluids CBC neg for leukocytosis/neutrophilia, CMP was negative, CRP was 18.5, procalcitonin was 0.05. --03/03/2021 f/u and was noted to have hypotension--IVF bolus repeated steroid burst, albuterol nebulizers, IV rocephin, mucinex --03/04/2021 f/u reported that she was feeling much better and felt she was on the path to recovery. --03/07/2021 outpatient, hypotension, weak, cough, admitted for IV fluids and further work-up Hospital course 03/08/2021; patient feeling better today, more energy however ongoing cough with mucus production, suspect concomitant sinus etiology, CT bronchiectasis, no fever, ongoing IV fluids, tolerating p.o. fluids, 03/09/2021; on rounds, patient in chair conversing with daughter, feels much improved, cough much improved however now slightly dry, patient has not been restarted on her inhaler Trelegy as ordered nor has she received her Flutter valve Acapella device for mucus clearance nor has a javier pot or saline irri gation has been given. 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, possible viral etiology --Rhinosinusitis with concomitant Allergic Rhinitis--added flonase, nasal irrigation, --Dehydration/hypotension, improving Chronic conditions: #COPD: Continue Trelegy and albuterol inhaler #Dyspnea on exertion: #Seasonal allergic rhinitis: Continue montelukast, added Flonase #Pulmonary hypertension: #Heart failure with preserved ejection fraction: #Hyperlipidemia: Continue rosuvastatin #Hypertension: Hold losartan #Seronegative rheumatoid arthritis: Continue sulfasalazine and hydroxychloroquine #Peptic ulcer: #GERD: Continue pantoprazole #Duodenal mass: #Migraine: Hold sumatriptan #Vitamin D deficiency: #Hypercalcemia: #Osteoporosis: Restart Forteo; may continue Tylenol arthritis #Peripheral polyneuropathy: Continue gabapentin #Facet joint sclerosis: #Lumbar radiculitis: #Midline low back pain with left-sided sciatica: #Bilateral low back pain with bilateral sciatica: #Spondylolisthesis of lumbar sacral region: #Foraminal stenosis of lumbar region: #Scoliosis of the thoracicolumbar spine: #Restless leg syndrome: Continue pramipexole #Anxiety/depression: Continue doxepin and Escitalopram #Supplement: May continue multivitamin Disposition/overall plan --encourage PO fluids --Add Flonase --flutter valve Acapella device for mucus clearance --Codeine cough syrup bedtime use only, cont Robitussin-DM during day --cont ceftriaxone --Trelogy today --Plan to discharge to LTC in a.m. [facility] Newly added medication this admission to continue upon discharge Flonase
[2021-03-09] MEDS: TERIPARATIDE SUBCUT SCH (10:05)
[2021-03-09] MEDS: VILANTER INH SCH (10:07)
[2021-03-09] MEDS: UMECLIDIN INH SCH (10:07)
[2021-03-09] MEDS: FLUTICASONE INH SCH (10:07)
[2021-03-09] MEDS: Pramipexole 0.5 MG Tab PO SCH ×3 (11:54→20:45)
[2021-03-09] MEDS: Rosuvastatin 10 MG Tab PO SCH (17:13)
[2021-03-09] MEDS: Montelukast 10 MG Tab PO SCH (20:45)
[2021-03-09] MEDS: Doxepin 25 MG Cap PO SCH (20:46)
[2021-03-09] MEDS: Codeine/guaiFENesin 10-100 MG/5 ML Syrup 5 ML Cup PO SCH (20:49)
[2021-03-10] MEDS: Albuterol 0.083% 2.5 MG/3 ML Neb Soln INH SCH ×3 (02:46→11:09)
[2021-03-10 06:44] VITALS: BP 120/61
[2021-03-10 08:03] VITALS: PULSE 80
[2021-03-10] MEDS: UMECLIDIN INH SCH (08:41)
[2021-03-10] MEDS: VILANTER INH SCH (08:41)
[2021-03-10] MEDS: FLUTICASONE INH SCH (08:41)
[2021-03-10] MEDS: TERIPARATIDE SUBCUT SCH (08:42)
[2021-03-10] MEDS: Fluticasone Propionate Nasal Spray 16 GM Bottle NASBOTH SCH (08:42)
[2021-03-10] MEDS: Gabapentin 100 MG Cap PO SCH (08:43)
[2021-03-10] MEDS: Escitalopram 10 MG Tab PO SCH (08:43)
[2021-03-10] MEDS: sulfaSALAzine 500 MG Tab PO SCH (08:43)
[2021-03-10] MEDS: Omeprazole 20 MG Cap.CR PO SCH (08:43)
[2021-03-10] MEDS: Hydroxychloroquine 200 MG Tab PO SCH (08:44)
[2021-03-10] MEDS: Lutein/Minerals/Vitamins A, C & E Tab PO SCH (08:44)
[2021-03-10] MEDS: cefTRIAXone 2 GM Vial IVPUSH SCH (09:13)
[2021-03-10] MEDS: Pramipexole 0.5 MG Tab PO SCH (11:09)
--- NOTE | 2021-03-18 09:46 | PCM.DCSUM1 ---
Discharge Summary - Hospital Course Diagnosis: Stroke: No - Discharge Data Discharge Date: 03/10/21 Discharge Disposition: DC/Tfer to SNF 03 Condition: Good - Referral to Home Health Primary Care Physician: Ally Rouse NP - Patient Summary/Data Consults: Consultations 03/08/21 09:34 Consult to Physical Therapy [PT Evaluation and Treatment] [CONS] Routine 03/08/21 13:37 OT Evaluation and Treatment [CONS] Routine - Patient Instructions Diet: Regular Diet as Tolerated Activity: As Tolerated, Cough & Deep Breathe Showering/Bathing: May Shower Notify Provider of: Fever Other/Special Instructions: --encourage PO fluids. --report shortness of breath. --flutter valve Acapella device for mucus clearance - Discharge Plan *PRESCRIPTION DRUG MONITORING PROGRAM REVIEWED*: Not Applicable *COPY OF PRESCRIPTION DRUG MONITORING REPORT IN PATIENT ANMOL: Not Applicable Prescriptions/Med Rec: guaiFENesin/Dextromethorphan [Mucus Rlf Dm ER 600-30 mg Tab] 1 each PO BID PRN 14 Days #30 tab.er.12h PRN Reason: Cough Home Medications: Home Meds Gabapentin [Neurontin] 400 mg PO TID 07/09/17 [History] Albuterol/Ipratropium [DuoNeb 3.0-0.5 MG/3 ML] 3 ml INH QID PRN 03/07/21 [History] Pramipexole Di-HCl [Mirapex] 1 mg PO ASDIRECTED 03/07/21 [History] Teriparatide 20 mcg SUBCUT DAILY 03/07/21 [History] Acetaminophen [Tylenol Arthritis Pain] 1,300 mg PO BID PRN tab.er 03/10/21 [Rx] Acetaminophen [Tylenol Arthritis] 1,300 mg PO BID PRN #30 03/10/21 [Rx] Albuterol Sulfate [Albuterol Sulfate HFA] 2 puff INH Q4H PRN #30 03/10/21 [Rx] Albuterol [Proventil Neb Soln] 2.5 mg INH Q4HR PRN #30 03/10/21 [Rx] Albuterol [Proventil Neb Soln] 2.5 mg INH Q4HR PRN #30 neb 03/10/21 [Rx] Albuterol [Ventolin HFA] 0 gm INH Q4H PRN inhaler 03/10/21 [Rx] Albuterol/Ipratropium [DuoNeb 3.0-0.5 MG/3 ML] 3 ml INH QID PRN neb 03/10/21 [Rx] Doxepin [SINEquan] 30 mg PO BEDTIME #0 03/10/21 [Rx] Escitalopram Oxalate 20 mg PO DAILY #0 03/10/21 [Rx] Escitalopram [Lexapro] 20 mg PO DAILY tablet 03/10/21 [Rx] Fluticasone Propionate [Flonase] 100 gm NASBOTH DAILY bottle 03/10/21 [Rx] Fluticasone/Umeclidin/Vilanter [Trelegy Ellipta 100-62.5-25 MCG] 1 puff INH DAILY #0 03/10/21 [Rx] Gabapentin [Neurontin] 400 mg PO TID cap 03/10/21 [Rx] Hydroxychloroquine [Plaquenil] 200 mg PO DAILY tablet 03/10/21 [Rx] Hydroxychloroquine [Plaquenil] 200 mg PO TuThSa@2100 tablet 03/10/21 [Rx] Losartan Potassium 25 mg PO DAILY #0 03/10/21 [Rx] Lutein/Minerals/Vit A,C & E [Ocuvite] 1 each PO DAILY tablet 03/10/21 [Rx] Lutein/Minerals/Vit A,C & E [Ocuvite] 1 tab PO DAILY #0 03/10/21 [Rx] Montelukast [Singulair] 10 mg PO BEDTIME tablet 03/10/21 [Rx] Montelukast [Singulair] 10 mg PO BEDTIME #0 03/10/21 [Rx] Omeprazole 20 mg PO BIDMEALS cap.cr 03/10/21 [Rx] Pantoprazole Sodium [Protonix] 20 mg PO BID #0 03/10/21 [Rx] Pramipexole [Mirapex] 0.5 mg PO BID@1200,1500 tablet 03/10/21 [Rx] Pramipexole [Mirapex] 1 mg PO BEDTIME tablet 03/10/21 [Rx] Rosuvastatin [Crestor] 10 mg PO 1800 tablet 03/10/21 [Rx] Rosuvastatin [Crestor] 10 mg PO 1800 #1 09/02/21 [Rx] SUMAtriptan succinate [Imitrex] 100 mg PO DAILY PRN #5 03/10/21 [Rx] guaiFENesin/Dextromethorphan [Mucus Rlf Dm ER 600-30 mg Tab] 1 each PO BID PRN 14 Days #30 tab.er.12h 03/10/21 [Rx] sulfaSALAzine 1,500 mg PO BID tablet 03/10/21 [Rx] sulfaSALAzine [Azulfidine] 1,500 mg PO BID #0 03/10/21 [Rx] Referrals: [facility] [Outside] - Discharge Summary/Plan Comment DC Time >30 min.: Yes Total # of Minutes for Discharge Time: 60 minutes Discharge Summary/Plan Comment: Final diagnosis --Bronchialectasis, --Rhinosinusitis with concomitant Allergic Rhinitis --Dehydration/hypotension, resolved Chronic conditions: #COPD: Continue Trelegy and albuterol inhaler #Dyspnea on exertion: #Seasonal allergic rhinitis: Continue montelukast, added Flonase #Pulmonary hypertension: #Heart failure with preserved ejection fraction: #Hyperlipidemia: Continue rosuvastatin #Hypertension: Hold losartan #Seronegative rheumatoid arthritis: Continue sulfasalazine and hydroxychloroquine #Peptic ulcer: #GERD: Continue pantoprazole #Duodenal mass: #Migraine: Hold sumatriptan #Vitamin D deficiency: #Hypercalcemia: #Osteoporosis: Restart Forteo; may continue Tylenol arthritis #Peripheral polyneuropathy: Continue gabapentin #Facet joint sclerosis: #Lumbar radiculitis: #Midline low back pain with left-sided sciatica: #Bilateral low back pain with bilateral sciatica: #Spondylolisthesis of lumbar sacral region: #Foraminal stenosis of lumbar region: #Scoliosis of the thoracicolumbar spine: #Restless leg syndrome: Continue pramipexole #Anxiety/depression: Continue doxepin and Escitalopram #Supplement: May continue multivitamin History summary Mx [place] an 80-year-old patient that was admitted into INPT status by Ally Rouse NP from [facility] working/clinical diagnosis of weakness, dehydration and coughing and pneumonia--she has been sick for ~2 weeks with recent ED visit along with clinic follow-ups and had been on antibiotics however failing outpatient treatment. Patient clinical course/history --Initially seen on 02/24/2021 and clinically dx with exacerbation of COPD he did have purulent sputum--treated with macrolide/prednisone burst. --02/26/2021 [place] ED, nonspecific findings however parents of post COVID sequela although Neg COVID test, Sent home with Doxycycline --02/28/2021 follow-up from the ER. Ongoing cough but feeling somewhat better --03/02/2021 o/p clinic for worsening sx with reports of coughing up mucous chunks. CXR Hazy bibasilar interstitial opacities appear slightly more prominent when compared to 12/15/2019 and may represent multifocal pneumonia--IV fluids CBC neg for leukocytosis/neutrophilia, CMP was negative, CRP was 18.5, procalcitonin was 0.05. --03/03/2021 f/u and was noted to have hypotension--IVF bolus repeated steroid burst, albuterol nebulizers, IV rocephin, mucinex --03/04/2021 f/u reported that she was feeling much better and felt she was on the path to recovery. --03/07/2021 outpatient, hypotension, weak, cough, admitted for IV fluids and further work-up Hospital course 03/08/2021; patient feeling better today, more energy however ongoing cough with mucus production, suspect concomitant sinus etiology, CT bronchiectasis, no fever, ongoing IV fluids, tolerating p.o. fluids, 03/09/2021; on rounds, patient in chair conversing with daughter, feels much improved, cough much improved however now slightly dry, patient has not been restarted on her inhaler Trelegy as ordered nor has she received her Flutter valve Acapella device for mucus clearance nor has a javier pot or saline irrigation has been given. 03/10/2021; patient feeling much better on rounds conversing while sitting in chair. She stated her Flutter valve Acapella device hopes are clear her mucus. She has no shortness of breath vital signs are good. No fever. She received Tri-Ex own for her bronchial ectasis although I did suspect viral etiology. We added Flonase for her rhinosinusitis. She was well hydrated upon discharge. Medication changes/adjustments upon discharge Flonase as directed Disposition/overall plan --flutter valve Acapella device for mucus clearance --discharge to [facility] - General Info Functional Status: Reports: Pain Controlled - Review of Systems General: Reports: No Symptoms HEENT: Reports: No Symptoms Pulmonary: Reports: No Symptoms Cardiovascular: Reports: No Symptoms Gastrointestinal: Reports: No Symptoms Neurological: Reports: No Symptoms Psychiatric: Reports: No Symptoms - Patient Data Vitals - Most Recent: Last Vital Signs Temp 97.2 F 03/10/21 06:43 Pulse 80 03/10/21 07:33 Resp 18 03/10/21 06:43 BP 120/61 03/10/21 06:43 Pulse Ox 97 03/10/21 07:33 Weight - Most Recent: 128 lb 12.8 oz Med Orders - Current: Current Medications Discontinued Medications Acetaminophen (Acetaminophen 650 Mg Tab.Er) 1,300 mg PO BID PRN PRN Reason: Pain Last Admin: 03/08/21 21:01 Dose: 1,300 mg Documented by: Albuterol (Albuterol 0.083% 2.5 Mg/3 Ml Neb Soln) 2.5 mg INH Q4HR [facility] Last Admin: 03/10/21 11:09 Dose: 2.5 mg Documented by: Albuterol (Albuterol 8 Gm Inhaler) 0 gm INH Q4H PRN PRN Reason: Shortness of Breath Albuterol/Ipratropium (Albuterol/Ipratropium 3.0-0.5 Mg/3 Ml Neb Soln) 3 ml INH QID PRN PRN Reason: Shortness of Breath Ceftriaxone Sodium (Ceftriaxone 2 Gm Vial) 2 gm IVPUSH Q24H [facility] Last Admin: 03/10/21 09:13 Dose: 2 gm Documented by: Doxepin HCl (Doxepin 25 Mg Cap) 25 mg PO BEDTIME [facility] Last Admin: 03/09/21 20:46 Dose: 25 mg Documented by: Escitalopram Oxalate (Escitalopram 10 Mg Tab) 20 mg PO DAILY [facility] Last Admin: 03/10/21 08:43 Dose: 20 mg Documented by: Fluticasone Propionate (Fluticasone Propionate Nasal [place] 16 Gm Bottle) 100 gm NASBOTH DAILY [facility] Last Admin: 03/10/21 08:42 Dose: 1 spray Documented by: Gabapentin (Gabapentin 100 Mg Cap) 400 mg PO TID [facility] Last Admin: 03/10/21 08:43 Dose: 400 mg Documented by: Guaifenesin/Codeine Phosphate (Codeine/Guaifenesin 10-100 Mg/5 Ml Syrup 5 Ml Cup) 10 ml PO BEDTIME [facility] Last Admin: 03/09/21 20:49 Dose: 10 ml Documented by: Guaifenesin/Phenylephrine HCl (Guaifenesin/Dextromethorphan 100-10 Mg/5 Ml Soln 5 Ml Cup) 10 ml PO Q4H PRN PRN Reason: Cough Last Admin: 03/09/21 17:13 Dose: 10 ml Documented by: Hydroxychloroquine Sulfate (Hydroxychloroquine 200 Mg Tab) 200 mg PO DAILY [facility] Last Admin: 03/10/21 08:44 Dose: 200 mg Documented by: Hydroxychloroquine Sulfate (Hydroxychloroquine 200 Mg Tab) 200 mg PO TuThSa@2100 [facility] Last Admin: 03/08/21 21:00 Dose: 200 mg Documented by: Sodium Chloride (Normal Saline) 1,000 mls @ 75 mls/hr IV ASDIRECTED [facility] Last Admin: 03/07/21 18:59 Dose: 75 mls/hr Documented by: Sodium Chloride (Normal Saline) 500 mls @ 999 mls/hr IV .BOLUS ONE Stop: 03/07/21 19:28 Last Admin: 03/07/21 19:43 Dose: 999 mls/hr Documented by: Cefepime HCl 2 gm/ Sodium (Chloride) 50 mls @ 100 mls/hr IV Q8HR [facility] Last Admin: 03/08/21 06:11 Dose: 100 mls/hr Documented by: Montelukast Sodium (Montelukast 10 Mg Tab) 10 mg PO BEDTIME [facility] Last Admin: 03/09/21 20:45 Dose: 10 mg Documented by: Multivitamins/Minerals (Lutein/Minerals/Vitamins A, C & E Tab) 1 each PO DAILY [facility] Last Admin: 03/10/21 08:44 Dose: 1 each Documented by: Non-Formulary Medication (Doxepin [Sinequan]) 30 mg PO BEDTIME [facility] Last Admin: 03/08/21 07:02 Dose: Not Given Documented by: Omeprazole (Omeprazole 20 Mg Cap.Cr) 20 mg PO BIDMEALS [facility] Last Admin: 03/10/21 08:43 Dose: 20 mg Documented by: Fluticasone/Umeclidin/Vilanter 28 Puff/Inhaler Inhaler (Trelegy) - Ptom 0 each INH DAILY [facility] Last Admin: 03/10/21 08:41 Dose: 1 each Documented by: Winter [Teriparatide ] 600mcg/2.4ml Pen. Injctr 0 each SUBCUT DAILY [facility] Last Admin: 03/10/21 08:42 Dose: 1 each Documented by: Pramipexole Dihydrochloride (Pramipexole 0.5 Mg Tab) 1 mg PO BEDTIME [facility] Last Admin: 03/09/21 20:45 Dose: 1 mg Documented by: Pramipexole Dihydrochloride (Pramipexole 0.5 Mg Tab) 0.5 mg PO BID@1200,1500 [facility] Last Admin: 03/10/21 11:09 Dose: 0.5 mg Documented by: Prednisone (Prednisone 20 Mg Tab) 40 mg PO DAILY [facility] Stop: 03/13/21 07:00 Last Admin: 03/08/21 08:16 Dose: 40 mg Documented by: Rosuvastatin Calcium (Rosuvastatin 10 Mg Tab) 10 mg PO 1800 [facility] Last Admin: 03/09/21 17:13 Dose: 10 mg Documented by: Sulfasalazine (Sulfasalazine 500 Mg Tab) 1,500 mg PO BID [facility] Last Admin: 03/10/21 08:43 Dose: 1,500 mg Documented by: - Exam Quality Assessment: Denies: Supplemental Oxygen General: Reports: Alert, Oriented, Cooperative Neck: Reports: Supple Lungs: Reports: Clear to Auscultation, Normal Respiratory Effort Cardiovascular: Reports: Regular Rate, Regular Rhythm GI/Abdominal Exam: Normal Bowel Sounds, Soft (Female) Exam: Deferred Back Exam: Denies: CVA Tenderness (L), CVA Tenderness (R) Psy/Mental Status: Reports: Alert, Normal Affect, Normal Mood
== END 2021-03-10 11:40 | DRG 194 ==
LOC: KA.MS 17:27
PROVIDERS: ADMIT Nurse Practitioner Family; ATTEND Family Medicine
DX: J18.9 Pneumonia, unspecified organism (principal); J47.1 Bronchiectasis with (acute) exacerbation; I50.32 Chronic diastolic (congestive) heart failure; J44.0 Chronic obstructive pulmonary disease with (acute) lower respiratory infection; I95.9 Hypotension, unspecified; E86.0 Dehydration; J32.9 Chronic sinusitis, unspecified; J30.9 Allergic rhinitis, unspecified; E78.5 Hyperlipidemia, unspecified; I27.20 Pulmonary hypertension, unspecified; I11.0 Hypertensive heart disease with heart failure; M06.00 Rheumatoid arthritis without rheumatoid factor, unspecified site; Z20.822 Contact with and (suspected) exposure to COVID-19; K21.9 Gastro-esophageal reflux disease without esophagitis; E55.9 Vitamin D deficiency, unspecified; E83.52 Hypercalcemia; M81.0 Age-related osteoporosis without current pathological fracture; M54.42 Lumbago with sciatica, left side; M54.41 Lumbago with sciatica, right side; M43.17 Spondylolisthesis, lumbosacral region; G25.81 Restless legs syndrome; F41.9 Anxiety disorder, unspecified; F32.9 Major depressive disorder, single episode, unspecified; G62.9 Polyneuropathy, unspecified; Z79.52 Long term (current) use of systemic steroids; Z79.899 Other long term (current) drug therapy; Z88.0 Allergy status to penicillin; Z88.1 Allergy status to other antibiotic agents; Z90.49 Acquired absence of other specified parts of digestive tract; Z98.41 Cataract extraction status, right eye; Z98.42 Cataract extraction status, left eye
CPT/HCPCS: 36415; 71250; 80048; 80053; 83605; 83880; 84145; 85025; 86140; 87040; 87070; 87205; 94640; 97110-GO; 97535-GO; A9270-GY; J0692; J0696; J7030; J7512; J7613-GY; J7620-GY; U0002

== ENCOUNTER 2023-01-21 09:05 | Emergency (ER) | payer MEDICARE, MEDICAID ==
[2023-01-21 09:30] LABS: BASOPHILS ABSOLUTE AUTO 0.02 10^3/uL (0.00-0.10); BASOPHILS PERCENT AUTO 0.4 % (0.0-1.0); EOSINOPHILS ABSOLUTE AUTO 0.19 10^3/uL (0.10-0.30); EOSINOPHILS PERCENT AUTO 3.3 % (1.0-3.0); HEMATOCRIT 47.3 % (37.0-47.0); HEMOGLOBIN 15.3 g/dL (12.0-16.0); IMMATURE GRAN ABSOLUTE AUTO 0.01 10^3/uL (0.00-0.50); IMMATURE GRAN PERCENT AUTO 0.2 % (0.0-5.0); LYMPHOCYTES ABSOLUTE AUTO 1.59 10^3/uL (1.00-4.00); LYMPHOCYTES PERCENT AUTO 27.9 % (20.0-40.0); MEAN CORPUSCULAR HEMOGLOBIN 31.8 pg (27.0-31.0); MEAN CORPUSCULAR HGB CONC 32.3 g/dL (32.0-36.0); MEAN CORPUSCULAR VOLUME 98.3 fL (82.0-92.0); MEAN PLATELET VOLUME 9.7 fL (7.4-10.4); MONOCYTES ABSOLUTE AUTO 0.89 10^3/uL (0.10-0.80); MONOCYTES PERCENT AUTO 15.6 % (2.0-8.0); NEUTROPHILS ABSOLUTE AUTO 2.99 10^3/uL (2.50-7.00); NEUTROPHILS PERCENT AUTO 52.6 % (50.0-70.0); PLATELET COUNT,PLT 190 10^3/uL (150-400); RED BLOOD CELL COUNT 4.81 10^6/uL (3.80-5.50); WHITE BLOOD CELL COUNT,WBC 5.69 10^3/uL (5.00-10.00)
[2023-01-21] MEDS: Aluminum Hydroxide/Magnesium Hydroxide/Simethicone Susp 30 ML Cup PO ONE (09:32)
[2023-01-21] MEDS: Famotidine 20 MG/2 ML SDV IVPUSH ONE (09:32)
[2023-01-21] MEDS: Sodium Chloride 0.9% 10 ML Syringe FLUSH PRN (09:39)
[2023-01-21 09:40] LABS: ALBUMIN 3.83 g/dL (3.40-5.00); ANION GAP 10.2 mmol/L (5-15); BILIRUBIN TOTAL 0.5 mg/dL (0.2-1.0); C-REACTIVE PROTEIN 0.5 mg/dL (0.0-0.9); CALCIUM 9.3 mg/dL (8.7-10.3); CARBON DIOXIDE,CO2 32.9 mmol/L (21.0-32.0); CREATININE 0.5 mg/dL (0.51-1.17); EST CRCL DRUG DOSING (CG) 74.91 mL/min; POTASSIUM,K 4.1 mmol/L (3.5-5.1); PROTEIN TOTAL,TP 7.3 g/dL (6.4-8.2)
[2023-01-21] MEDS: Lisinopril 10 MG Tab PO ONE (10:57)
[2023-01-21 11:17] VITALS: BP 147/79; PULSE 78
== END 2023-01-21 11:24 | disposition home or self-care (01) ==
LOC: KA.ED 09:05
DX: K21.9 Gastro-esophageal reflux disease without esophagitis (principal); R00.2 Palpitations; E78.00 Pure hypercholesterolemia, unspecified; I10 Essential (primary) hypertension; J44.9 Chronic obstructive pulmonary disease, unspecified; M19.90 Unspecified osteoarthritis, unspecified site; Z88.6 Allergy status to analgesic agent; Z88.5 Allergy status to narcotic agent; Z88.1 Allergy status to other antibiotic agents; Z91.041 Radiographic dye allergy status; Z79.51 Long term (current) use of inhaled steroids; Z79.899 Other long term (current) drug therapy
CPT/HCPCS: 71046; 80053; 83690; 83880; 84484; 85025; 85379; 86140; 96374; 99285; A9270; J3490

== ENCOUNTER 2024-01-30 18:48 | Emergency (ER) | payer MEDICARE, MEDICAID ==
[2024-01-30] MEDS ORDERED: Sodium Chloride 0.9% 10 ML Syringe FLUSH PRN (19:03)
[2024-01-30] MEDS: Aspirin 81 MG Tab.Chew PO ONE (19:31)
[2024-01-30] MEDS: Diltiazem 25 MG/5 ML SDV IVPUSH ONE (19:32)
[2024-01-30 19:46] LABS: BASOPHILS ABSOLUTE AUTO 0.01 10^3/uL (0.00-0.10); BASOPHILS PERCENT AUTO 0.1 % (0.0-1.0); EOSINOPHILS PERCENT AUTO 1.4 % (1.0-3.0); HEMATOCRIT 42.8 % (37.0-47.0); HEMOGLOBIN 14.3 g/dL (12.0-16.0); IMMATURE GRAN ABSOLUTE AUTO 0.01 10^3/uL (0.00-0.50); IMMATURE GRAN PERCENT AUTO 0.1 % (0.0-5.0); LYMPHOCYTES ABSOLUTE AUTO 1.72 10^3/uL (1.00-4.00); LYMPHOCYTES PERCENT AUTO 24.5 % (20.0-40.0); MEAN CORPUSCULAR HEMOGLOBIN 33.1 pg (27.0-31.0); MEAN CORPUSCULAR HGB CONC 33.4 g/dL (32.0-36.0); MEAN CORPUSCULAR VOLUME 99.1 fL (82.0-92.0); MEAN PLATELET VOLUME 9.4 fL (7.4-10.4); MONOCYTES ABSOLUTE AUTO 0.87 10^3/uL (0.10-0.80); MONOCYTES PERCENT AUTO 12.4 % (2.0-8.0); NEUTROPHILS PERCENT AUTO 61.5 % (50.0-70.0); PLATELET COUNT,PLT 235 10^3/uL (150-400); RED BLOOD CELL COUNT 4.32 10^6/uL (3.80-5.50); RED CELL DISTRIBUTION WIDTH 14.1 % (11.5-14.5); WHITE BLOOD CELL COUNT,WBC 7.01 10^3/uL (5.00-10.00)
[2024-01-30 20:03] LABS: ALBUMIN 3.55 g/dL (3.40-5.00); ANION GAP 16.1 mmol/L (5-15); BILIRUBIN TOTAL 0.5 mg/dL (0.2-1.0); CALCIUM 9.1 mg/dL (8.7-10.3); CARBON DIOXIDE,CO2 24.4 mmol/L (21.0-32.0); CREATININE 0.49 mg/dL (0.51-1.17); EST CRCL DRUG DOSING (CG) 75.12 mL/min; POTASSIUM,K 3.5 mmol/L (3.5-5.1); PROTEIN TOTAL,TP 6.7 g/dL (6.4-8.2)
[2024-01-30 20:16] LABS: MAGNESIUM 1.9 mg/dL (1.8-2.4); PHOSPHORUS 3.7 mg/dL (2.6-4.7)
[2024-01-30 20:18] LABS: C-REACTIVE PROTEIN < 0.50 mg/dL (0.00-0.50)
[2024-01-30] MEDS: Nitroglycerin 0.4 MG Tab.SL SL PRN (20:24)
[2024-01-30] MEDS: Sodium Chloride 0.9% 1,000 ML IV SCH (20:26)
[2024-01-30] MEDS: Furosemide 40 MG/4 ML VIAL IVPUSH ONE (20:52)
[2024-01-30 21:52] LABS: APPEARANCE,URINE CLEAR (CLEAR); BILIRUBIN,URINE NEGATIVE (NEGATIVE); COLOR,URINE YELLOW (YELLOW); GLUCOSE,URINE NEGATIVE (NEGATIVE); KETONES,URINE NEGATIVE (NEGATIVE); LEUKOCYTE ESTERASE,URINE NEGATIVE (NEGATIVE); NITRITE,URINE NEGATIVE (NEGATIVE); OCCULT BLOOD,URINE NEGATIVE (NEGATIVE); PROTEIN,URINE NEGATIVE (NEGATIVE); UROBILINOGEN,URINE 0.2 E.U./dL (0.2-1.0)
[2024-01-30] MEDS: Apixaban 5 MG Tab PO ONE (22:43)
[2024-01-30] MEDS: Metoprolol Tartrate 25 MG Tab PO ONE (22:45)
[2024-01-31 00:04] VITALS: BP 95/46; PULSE 79
== END 2024-01-30 23:03 ==
LOC: KA.ED 18:48
DX: I48.92 Unspecified atrial flutter (principal); R07.89 Other chest pain; J44.9 Chronic obstructive pulmonary disease, unspecified; I48.91 Unspecified atrial fibrillation; I10 Essential (primary) hypertension; E78.00 Pure hypercholesterolemia, unspecified; K21.9 Gastro-esophageal reflux disease without esophagitis; Z79.899 Other long term (current) drug therapy; Z90.49 Acquired absence of other specified parts of digestive tract; Z88.0 Allergy status to penicillin; Z88.6 Allergy status to analgesic agent; Z88.5 Allergy status to narcotic agent; Z88.2 Allergy status to sulfonamides; Z88.8 Allergy status to other drugs, medicaments and biological substances; Z91.041 Radiographic dye allergy status; Z88.1 Allergy status to other antibiotic agents
CPT/HCPCS: 36415; 71045; 80053; 81003; 83605; 83735; 83880; 84100; 84484; 85025; 85379; 85730; 86140; 96361; 96374; 96375; 99285; A9270; J1940; J3490; J7030; 93010; 99284

== ENCOUNTER 2024-02-03 07:00 | Emergency (ER) | payer MEDICARE, MEDICAID ==
[2024-02-03 07:36] LABS: BASOPHILS ABSOLUTE AUTO 0.02 10^3/uL (0.00-0.10); BASOPHILS PERCENT AUTO 0.4 % (0.0-1.0); EOSINOPHILS PERCENT AUTO 1.9 % (1.0-3.0); HEMOGLOBIN 14.3 g/dL (12.0-16.0); IMMATURE GRAN ABSOLUTE AUTO 0.01 10^3/uL (0.00-0.50); IMMATURE GRAN PERCENT AUTO 0.2 % (0.0-5.0); LYMPHOCYTES ABSOLUTE AUTO 1.79 10^3/uL (1.00-4.00); LYMPHOCYTES PERCENT AUTO 34.4 % (20.0-40.0); MEAN CORPUSCULAR HEMOGLOBIN 32.7 pg (27.0-31.0); MEAN CORPUSCULAR HGB CONC 32.5 g/dL (32.0-36.0); MEAN CORPUSCULAR VOLUME 100.7 fL (82.0-92.0); MEAN PLATELET VOLUME 9.3 fL (7.4-10.4); MONOCYTES ABSOLUTE AUTO 0.54 10^3/uL (0.10-0.80); MONOCYTES PERCENT AUTO 10.4 % (2.0-8.0); NEUTROPHILS ABSOLUTE AUTO 2.74 10^3/uL (2.50-7.00); NEUTROPHILS PERCENT AUTO 52.7 % (50.0-70.0); PLATELET COUNT,PLT 254 10^3/uL (150-400); RED BLOOD CELL COUNT 4.37 10^6/uL (3.80-5.50); RED CELL DISTRIBUTION WIDTH 14.2 % (11.5-14.5)
[2024-02-03] MEDS: Apixaban 5 MG Tab PO ONE (07:56)
[2024-02-03 07:57] LABS: ALBUMIN 3.55 g/dL (3.40-5.00); ANION GAP 11.8 mmol/L (5-15); BILIRUBIN TOTAL 0.6 mg/dL (0.2-1.0); CALCIUM 9.1 mg/dL (8.7-10.3); CARBON DIOXIDE,CO2 29.2 mmol/L (21.0-32.0); CREATININE 0.52 mg/dL (0.51-1.17); EST CRCL DRUG DOSING (CG) 71.02 mL/min; PROTEIN TOTAL,TP 6.7 g/dL (6.4-8.2)
[2024-02-03] MEDS: Metoprolol Tartrate 25 MG Tab PO ONE (07:57)
[2024-02-03] MEDS: Lidocaine 5% 700 MG Patch TRDERM PRN (09:49)
[2024-02-03 09:53] VITALS: BP 127/82; PULSE 88
[2024-02-04] MEDS: Lidocaine 5% 700 MG Patch ONE (11:01)
[2024-02-04] MEDS: Apixaban 5 MG Tab ONE (11:01)
[2024-02-04] MEDS: Metoprolol Tartrate 25 MG Tab ONE (11:01)
== END 2024-02-03 10:26 ==
LOC: KA.ED 07:00
DX: R07.89 Other chest pain (principal); I10 Essential (primary) hypertension; E78.00 Pure hypercholesterolemia, unspecified; J44.9 Chronic obstructive pulmonary disease, unspecified; K21.9 Gastro-esophageal reflux disease without esophagitis; Z90.49 Acquired absence of other specified parts of digestive tract; Z79.899 Other long term (current) drug therapy; Z88.0 Allergy status to penicillin; Z88.5 Allergy status to narcotic agent; Z88.6 Allergy status to analgesic agent; Z91.041 Radiographic dye allergy status; Z88.2 Allergy status to sulfonamides; Z88.8 Allergy status to other drugs, medicaments and biological substances; Z88.1 Allergy status to other antibiotic agents
CPT/HCPCS: 36415; 71045; 80053; 83735; 84484; 85025; 99285; A9270; 93010; 99284

== ENCOUNTER 2024-04-27 10:50 | Observation (INO) | payer MEDICARE, MEDICAID ==
[2024-04-27 11:31] LABS: BASOPHILS ABSOLUTE AUTO 0.03 10^3/uL (0.00-0.10); BASOPHILS PERCENT AUTO 0.3 % (0.0-1.0); EOSINOPHILS ABSOLUTE AUTO 0.03 10^3/uL (0.10-0.30); EOSINOPHILS PERCENT AUTO 0.3 % (1.0-3.0); HEMATOCRIT 44.6 % (37.0-47.0); HEMOGLOBIN 15.4 g/dL (12.0-16.0); IMMATURE GRAN ABSOLUTE AUTO 0.04 10^3/uL (0.00-0.50); IMMATURE GRAN PERCENT AUTO 0.4 % (0.0-5.0); LYMPHOCYTES ABSOLUTE AUTO 2.03 10^3/uL (1.00-4.00); LYMPHOCYTES PERCENT AUTO 19.4 % (20.0-40.0); MEAN CORPUSCULAR HEMOGLOBIN 33.2 pg (27.0-31.0); MEAN CORPUSCULAR HGB CONC 34.5 g/dL (32.0-36.0); MEAN CORPUSCULAR VOLUME 96.1 fL (82.0-92.0); MEAN PLATELET VOLUME 9.2 fL (7.4-10.4); MONOCYTES ABSOLUTE AUTO 1.01 10^3/uL (0.10-0.80); MONOCYTES PERCENT AUTO 9.6 % (2.0-8.0); NEUTROPHILS ABSOLUTE AUTO 7.34 10^3/uL (2.50-7.00); PLATELET COUNT,PLT 219 10^3/uL (150-400); RED BLOOD CELL COUNT 4.64 10^6/uL (3.80-5.50); RED CELL DISTRIBUTION WIDTH 13.9 % (11.5-14.5); WHITE BLOOD CELL COUNT,WBC 10.48 10^3/uL (5.00-10.00)
[2024-04-27] MEDS: Sodium Chloride 0.9% 1,000 ML IV ONE (11:33)
[2024-04-27] MEDS: Sodium Chloride 0.9% 1,000 ML ONE (11:34)
[2024-04-27] MEDS: Ondansetron 4 MG/2 ML SDV IVPUSH ONE (11:44)
[2024-04-27 11:46] LABS: APPEARANCE,URINE CLEAR (CLEAR); BACTERIA,URINE FEW /HPF (NONE TO FEW); BILIRUBIN,URINE MODERATE (NEGATIVE); COLOR,URINE DARK YELLOW (YELLOW); EPITHELIAL CELLS,URINE FEW /LPF; GLUCOSE,URINE NEGATIVE (NEGATIVE); GRANULAR CASTS,URINE RARE; HYALINE CASTS,URINE FEW; KETONES,URINE 15 mg/dL (NEGATIVE); LEUKOCYTE ESTERASE,URINE NEGATIVE (NEGATIVE); NITRITE,URINE NEGATIVE (NEGATIVE); OCCULT BLOOD,URINE NEGATIVE (NEGATIVE); PH,URINE 5.5 (5.0-9.0); PROTEIN,URINE 100 mg/dL (NEGATIVE); RBC,URINE 0-5 /HPF (0-5); UROBILINOGEN,URINE 0.2 E.U./dL (0.2-1.0); WBC,URINE 0-5 /HPF (0-5)
[2024-04-27 11:53] LABS: ALBUMIN 3.09 g/dL (3.40-5.00); BILIRUBIN TOTAL 1.4 mg/dL (0.2-1.0); CALCIUM 8.4 mg/dL (8.7-10.3); CARBON DIOXIDE,CO2 25.1 mmol/L (21.0-32.0); CREATININE 0.57 mg/dL (0.51-1.17); EST CRCL DRUG DOSING (CG) 63.72 mL/min; POTASSIUM,K 4.9 mmol/L (3.5-5.1); PROTEIN TOTAL,TP 5.4 g/dL (6.4-8.2)
[2024-04-27 11:54] LABS: ANION GAP 13.8 mmol/L (5-15)
[2024-04-27] MEDS: Ondansetron 4 MG/2 ML SDV ONE (12:04)
[2024-04-27] MEDS ORDERED: Docusate Sodium 100 MG Cap PO PRN (14:58)
[2024-04-27] MEDS ORDERED: Albuterol 8 GM Inhaler INH PRN (15:05)
[2024-04-27 16:01] LABS: ALBUMIN 2.93 g/dL (3.40-5.00); ANION GAP 13.2 mmol/L (5-15); BILIRUBIN TOTAL 1.2 mg/dL (0.2-1.0); C-REACTIVE PROTEIN 4.49 mg/dL (0.00-0.50); CALCIUM 8.2 mg/dL (8.7-10.3); CARBON DIOXIDE,CO2 24.3 mmol/L (21.0-32.0); CREATININE 0.66 mg/dL (0.51-1.17); EST CRCL DRUG DOSING (CG) 55.77 mL/min; MAGNESIUM 1.7 mg/dL (1.8-2.4); POTASSIUM,K 4.5 mmol/L (3.5-5.1); PROTEIN TOTAL,TP 5.3 g/dL (6.4-8.2); TSH ULTRASENSITIVE 2.852 uIU/mL (0.340-4.820)
[2024-04-27] MEDS: Sodium Chloride 0.9% 1,000 ML IV SCH (16:15)
[2024-04-27] MEDS: Pramipexole 0.5 MG Tab PO SCH ×2 (16:40→21:10)
[2024-04-27] MEDS: Metoclopramide 10 MG/2 ML SDV IVPUSH SCH (16:40)
[2024-04-27] MEDS: Cyclobenzaprine 5 MG Tab PO PRN (16:42)
[2024-04-27] MEDS: Timolol Maleate 0.5% Ophth Soln 5 ML Bottle EYELF SCH (16:47)
[2024-04-27] MEDS: Ondansetron 4 MG Tab.DIS PO PRN (17:17)
[2024-04-27] MEDS: Metoprolol Tartrate 25 MG Tab PO SCH (18:52)
[2024-04-27] MEDS: Metoprolol Tartrate 25 MG Tab ONE (18:56)
[2024-04-27] MEDS: Magnesium Sulfate/Water Premix 2 GM in Premix Bag 1 BAG IV ONE (19:33)
[2024-04-27] MEDS: Latanoprost 0.005% Ophth Soln 2.5 ML Bottle EYELF SCH (21:04)
[2024-04-27] MEDS: Gabapentin 100 MG Cap PO SCH (21:05)
[2024-04-27] MEDS: Acetaminophen 325 MG Tab PO PRN (21:07)
[2024-04-27] MEDS: Melatonin 3 MG Tab PO SCH (21:09)
[2024-04-27] MEDS: Montelukast 10 MG Tab PO SCH (21:09)
[2024-04-27] MEDS: Apixaban 5 MG Tab PO SCH (21:10)
[2024-04-27] MEDS: Polyethylene Glycol 400 15 ML Bottle EYEBOTH SCH (21:11)
[2024-04-27] MEDS: Formoterol/Mometasone 100-5 MCG 8.8 GM Inhaler IH SCH (21:18)
[2024-04-27] MEDS: Albuterol 0.083% 2.5 MG/3 ML Neb Soln NEB PRN (22:10)
[2024-04-28] MEDS: Diclofenac Sodium 1% Gel 100 GM Tube TOP PRN (04:33)
[2024-04-28 07:11] LABS: BASOPHILS ABSOLUTE AUTO 0.04 10^3/uL (0.00-0.10); BASOPHILS PERCENT AUTO 0.4 % (0.0-1.0); EOSINOPHILS ABSOLUTE AUTO 0.06 10^3/uL (0.10-0.30); EOSINOPHILS PERCENT AUTO 0.6 % (1.0-3.0); HEMATOCRIT 43.5 % (37.0-47.0); HEMOGLOBIN 15.1 g/dL (12.0-16.0); IMMATURE GRAN ABSOLUTE AUTO 0.04 10^3/uL (0.00-0.50); IMMATURE GRAN PERCENT AUTO 0.4 % (0.0-5.0); LYMPHOCYTES ABSOLUTE AUTO 1.98 10^3/uL (1.00-4.00); LYMPHOCYTES PERCENT AUTO 18.2 % (20.0-40.0); MEAN CORPUSCULAR HEMOGLOBIN 32.8 pg (27.0-31.0); MEAN CORPUSCULAR HGB CONC 34.7 g/dL (32.0-36.0); MEAN CORPUSCULAR VOLUME 94.6 fL (82.0-92.0); MEAN PLATELET VOLUME 8.9 fL (7.4-10.4); MONOCYTES ABSOLUTE AUTO 1.13 10^3/uL (0.10-0.80); MONOCYTES PERCENT AUTO 10.4 % (2.0-8.0); NEUTROPHILS ABSOLUTE AUTO 7.64 10^3/uL (2.50-7.00); PLATELET COUNT,PLT 173 10^3/uL (150-400); RED CELL DISTRIBUTION WIDTH 13.8 % (11.5-14.5); WHITE BLOOD CELL COUNT,WBC 10.89 10^3/uL (5.00-10.00)
[2024-04-28 07:24] LABS: ANION GAP 13.2 mmol/L (5-15); CALCIUM 7.9 mg/dL (8.7-10.3); CARBON DIOXIDE,CO2 22.6 mmol/L (21.0-32.0); CREATININE 0.68 mg/dL (0.51-1.17); EST CRCL DRUG DOSING (CG) 54.13 mL/min; MAGNESIUM 2.1 mg/dL (1.8-2.4); POTASSIUM,K 3.8 mmol/L (3.5-5.1)
[2024-04-28] MEDS ORDERED: Loperamide 2 MG Cap PO PRN (08:50)
[2024-04-28] MEDS ORDERED: Enoxaparin 30 MG/0.3 ML Syringe SUBCUT SCH (09:00)
[2024-04-28] MEDS ORDERED: Non-Formulary Medication 1 Each (Fluticasone/Umeclidin/Vilanter [Trelegy Ellipta 100-62.5- INH SCH (09:00)
[2024-04-28] MEDS ORDERED: Losartan 25 MG Tab PO SCH (09:00)
[2024-04-28] MEDS: Fluticasone NASAL Spray 16 GM Bottle NASBOTH SCH (09:51)
[2024-04-28] MEDS: Sodium Chloride 1 GM Tab PO ONE (09:53)
[2024-04-28] MEDS: Folic Acid 1 MG Tab PO SCH (09:53)
[2024-04-28] MEDS: Cholecalciferol (Vitamin D3) 25 MCG Tab PO SCH (09:53)
[2024-04-28] MEDS: Lutein/Minerals/Vitamins A, C & E Tab PO SCH (09:54)
[2024-04-28] MEDS: DULoxetine 30 MG Cap PO SCH (09:54)
[2024-04-28] MEDS: Tiotropium Bromide 4 GM Inhalation Spray (2.5mcg/1 dose; 10 doses) INH SCH (09:54)
[2024-04-28] MEDS: Furosemide 40 MG/4 ML VIAL IVPUSH ONE (10:05)
[2024-04-28] MEDS: Midodrine 5 MG Tab PO SCH ×2 (11:51→18:26)
[2024-04-28] MEDS: metroNIDAZOLE 500 MG Tab PO SCH (12:27)
[2024-04-28] MEDS: Cefdinir 300 MG Cap PO SCH (12:27)
[2024-04-28] MEDS: Furosemide 40 MG/4 ML VIAL IVPUSH SCH (16:18)
[2024-04-28 17:15] LABS: ANION GAP 11.2 mmol/L (5-15); CALCIUM 7.9 mg/dL (8.7-10.3); CARBON DIOXIDE,CO2 26.8 mmol/L (21.0-32.0); CREATININE 0.61 mg/dL (0.51-1.17); EST CRCL DRUG DOSING (CG) 60.34 mL/min; MAGNESIUM 1.8 mg/dL (1.8-2.4)
[2024-04-28] MEDS: Metoprolol Tartrate 5 MG/5 ML SDV IVPUSH ONE ×2 (17:45→18:31)
[2024-04-28] MEDS: Potassium Chloride 40 MEQ in Premix Bag 1 BAG IV ONE (17:47)
[2024-04-28] MEDS: Magnesium Sulfate/Water Premix 2 GM in Premix Bag 1 BAG IV ONE (17:48)
[2024-04-28 22:54] LABS: ANION GAP 11.2 mmol/L (5-15); CALCIUM 7.8 mg/dL (8.7-10.3); CARBON DIOXIDE,CO2 25.5 mmol/L (21.0-32.0); CREATININE 0.61 mg/dL (0.51-1.17); EST CRCL DRUG DOSING (CG) 60.34 mL/min; MAGNESIUM 2.3 mg/dL (1.8-2.4); POTASSIUM,K 3.7 mmol/L (3.5-5.1)
[2024-04-29 08:24] LABS: EOSINOPHILS PERCENT AUTO 0.9 % (1.0-3.0); HEMATOCRIT 46.8 % (37.0-47.0); IMMATURE GRAN ABSOLUTE AUTO 0.02 10^3/uL (0.00-0.50); IMMATURE GRAN PERCENT AUTO 0.2 % (0.0-5.0); LYMPHOCYTES ABSOLUTE AUTO 1.09 10^3/uL (1.00-4.00); LYMPHOCYTES PERCENT AUTO 10.1 % (20.0-40.0); MEAN CORPUSCULAR HEMOGLOBIN 32.7 pg (27.0-31.0); MEAN CORPUSCULAR HGB CONC 34.2 g/dL (32.0-36.0); MEAN CORPUSCULAR VOLUME 95.7 fL (82.0-92.0); MEAN PLATELET VOLUME 8.5 fL (7.4-10.4); MONOCYTES ABSOLUTE AUTO 1.13 10^3/uL (0.10-0.80); MONOCYTES PERCENT AUTO 10.4 % (2.0-8.0); NEUTROPHILS ABSOLUTE AUTO 8.48 10^3/uL (2.50-7.00); NEUTROPHILS PERCENT AUTO 78.4 % (50.0-70.0); PLATELET COUNT,PLT 169 10^3/uL (150-400); RED BLOOD CELL COUNT 4.89 10^6/uL (3.80-5.50); RED CELL DISTRIBUTION WIDTH 14.3 % (11.5-14.5); WHITE BLOOD CELL COUNT,WBC 10.82 10^3/uL (5.00-10.00)
[2024-04-29] MEDS: Polyethylene Glycol 400 15 ML Bottle EYEBOTH SCH (08:48)
[2024-04-29 09:05] LABS: ANION GAP 10.7 mmol/L (5-15); CALCIUM 8.1 mg/dL (8.7-10.3); CARBON DIOXIDE,CO2 28.9 mmol/L (21.0-32.0); CREATININE 0.46 mg/dL (0.51-1.17); EST CRCL DRUG DOSING (CG) 79.83 mL/min; MAGNESIUM 2.3 mg/dL (1.8-2.4); POTASSIUM,K 3.6 mmol/L (3.5-5.1)
[2024-04-29 11:26] VITALS: BP 122/78; PULSE 90
== END 2024-04-29 12:45 | disposition home or self-care (01) ==
LOC: KA.ED 10:50 → KA.MS 13:38
PROVIDERS: ADMIT Family Medicine; ATTEND Family Medicine
DX: E86.0 Dehydration (principal); E87.1 Hypo-osmolality and hyponatremia; R79.89 Other specified abnormal findings of blood chemistry; I11.0 Hypertensive heart disease with heart failure; I50.30 Unspecified diastolic (congestive) heart failure; I48.91 Unspecified atrial fibrillation; E87.8 Other disorders of electrolyte and fluid balance, not elsewhere classified; E44.1 Mild protein-calorie malnutrition; E78.00 Pure hypercholesterolemia, unspecified; Z88.1 Allergy status to other antibiotic agents; Z88.8 Allergy status to other drugs, medicaments and biological substances; Z88.2 Allergy status to sulfonamides; Z79.01 Long term (current) use of anticoagulants; Z79.899 Other long term (current) drug therapy
CPT/HCPCS: 36415; 70450; 71045; 74176; 80048; 80053; 81001; 83605; 83690; 83735; 83880; 84443; 85025; 86140; 93010; 96361; 96365; 96366; 96367; 96368; 96374; 96375; 96376; 99284; 99285-25; A9270-GY; G0378; J1940; J2405; J2765; J3475; J3480; J3490; J7030; J7613-GY; Q3014

== ENCOUNTER 2024-05-14 22:08 | Emergency (ER) | payer MEDICARE, MEDICAID ==
[2024-05-14 22:46] LABS: BASOPHILS ABSOLUTE AUTO 0.03 10^3/uL (0.00-0.10); BASOPHILS PERCENT AUTO 0.4 % (0.0-1.0); EOSINOPHILS ABSOLUTE AUTO 0.09 10^3/uL (0.10-0.30); EOSINOPHILS PERCENT AUTO 1.3 % (1.0-3.0); HEMATOCRIT 40.4 % (37.0-47.0); HEMOGLOBIN 13.5 g/dL (12.0-16.0); IMMATURE GRAN ABSOLUTE AUTO 0.01 10^3/uL (0.00-0.50); IMMATURE GRAN PERCENT AUTO 0.1 % (0.0-5.0); LYMPHOCYTES PERCENT AUTO 26.3 % (20.0-40.0); MEAN CORPUSCULAR HGB CONC 33.4 g/dL (32.0-36.0); MEAN CORPUSCULAR VOLUME 98.8 fL (82.0-92.0); MEAN PLATELET VOLUME 9.2 fL (7.4-10.4); MONOCYTES ABSOLUTE AUTO 0.87 10^3/uL (0.10-0.80); MONOCYTES PERCENT AUTO 12.7 % (2.0-8.0); NEUTROPHILS ABSOLUTE AUTO 4.04 10^3/uL (2.50-7.00); NEUTROPHILS PERCENT AUTO 59.2 % (50.0-70.0); PLATELET COUNT,PLT 267 10^3/uL (150-400); RED BLOOD CELL COUNT 4.09 10^6/uL (3.80-5.50); RED CELL DISTRIBUTION WIDTH 14.6 % (11.5-14.5); WHITE BLOOD CELL COUNT,WBC 6.84 10^3/uL (5.00-10.00)
[2024-05-14 22:51] VITALS: BP 103/68; PULSE 80
[2024-05-14 23:04] LABS: ALBUMIN 2.82 g/dL (3.40-5.00); ANION GAP 11.6 mmol/L (5-15); BILIRUBIN TOTAL 0.7 mg/dL (0.2-1.0); CALCIUM 8.1 mg/dL (8.7-10.3); CARBON DIOXIDE,CO2 29.1 mmol/L (21.0-32.0); CREATININE 0.51 mg/dL (0.51-1.17); EST CRCL DRUG DOSING (CG) 78.24 mL/min; POTASSIUM,K 3.7 mmol/L (3.5-5.1); PROTEIN TOTAL,TP 5.7 g/dL (6.4-8.2)
[2024-05-15] MEDS ORDERED: Sodium Chloride 0.9% 50 ML IV SCH
[2024-05-15] MEDS: Iopamidol 755 Mg/ML 100 ML Bottle IV ONE (00:33)
[2024-05-15] MEDS: Sodium Chloride 0.9% 100 ML IV SCH (00:33)
[2024-05-15] MEDS: cefTRIAXone 2 GM Vial IVPUSH ONE (01:21)
== END 2024-05-15 02:45 ==
LOC: KA.ED 22:08
DX: R60.9 Edema, unspecified (principal); J18.9 Pneumonia, unspecified organism; I48.91 Unspecified atrial fibrillation; E78.00 Pure hypercholesterolemia, unspecified; I10 Essential (primary) hypertension; J44.9 Chronic obstructive pulmonary disease, unspecified; K21.9 Gastro-esophageal reflux disease without esophagitis; Z90.49 Acquired absence of other specified parts of digestive tract; Z79.899 Other long term (current) drug therapy; Z88.0 Allergy status to penicillin; Z88.6 Allergy status to analgesic agent; Z88.8 Allergy status to other drugs, medicaments and biological substances; Z88.5 Allergy status to narcotic agent; Z88.1 Allergy status to other antibiotic agents; Z88.2 Allergy status to sulfonamides; Z91.041 Radiographic dye allergy status
CPT/HCPCS: 71045; 71275; 80053; 83880; 84484; 85025; 85379; 93005; 96374; 99285-25; J0696; J3490; Q9967